=== PATIENT | male | born 1950 | race African-American/Black ===

== ENCOUNTER 2018-01-23 14:50 | Inpatient (IN) | payer OTHER ==
[2018-01-23] MEDS ORDERED: ASPIRIN 81 MG CHEWABLE TABLETS PO ONE (15:06)
--- NOTE | 2018-01-23 15:06 | PDOC ---
History of Present Illness - History of Present Illness Initial Comments: The patient is a 67 year old male, with a significant PMH of HTN and CHF (NC with meds for 2 years), who presents to the emergency department today for dyspnea on exertion, as per request of Dr. Arauz. Patient saw earlier today for SOB and hematuria for 1 week, and was advised to go to the ED to be admitted. Patient notes he typically walks 3.5 blocks daily, but can no longer walk for more than 1 block or uphill without feeling SOB. He also reports associated orthopnea and LE edema. Patient notes there has been blood in his urine, but denies dysuria. The patient denies chest pain, headache and dizziness. Denies fever, chills, nausea, vomit, diarrhea and constipation. Denies dysuria, frequency, and urgency. Allergies: NKA Past surgical history: None reported Social history: No reported PCP: Dr. Arauz 01/23/18 16:02 <Luz Lin - Last Filed: 01/23/18 16:52> - General History Source: Patient Exam Limitations: No Limitations <Brittanie Negrete - Last Filed: 01/23/18 17:56> - General Chief Complaint: Shortness of Breath Stated Complaint: Shortness of Breath Time Seen by Provider: 01/23/18 14:58 Past History <Luz Lin - Last Filed: 01/23/18 16:52> - Past Medical History Diabetes: Yes HTN: Yes - Immunization History Immunization Up to Date: Yes - Suicide/Smoking/Psychosocial Hx Smoking History: Never smoked Have you smoked in the past 12 months: No Hx Alcohol Use: No Drug/Substance Use Hx: No Substance Use Type: None <Brittanie Negrete - Last Filed: 01/23/18 17:56> - Past Medical History Allergies/Adverse Reactions: Allergies Allergy/AdvReac Type Severity Reaction Status Date / Time No Known Allergies Allergy Verified 01/23/18 15:28 Home Medications: Ambulatory Orders NK [No Known Home Medication] 01/23/18 Review of Systems - Review of Systems Comments:: GENERAL/CONSTITUTIONAL: No fever or chills. No weakness. HEAD, EYES, EARS, NOSE AND THROAT: No change in vision. No ear pain or discharge. No sore throat. CARDIOVASCULAR: +SOB. No chest pain. RESPIRATORY: No cough, wheezing, or hemoptysis. GASTROINTESTINAL: No nausea, vomiting, diarrhea or constipation. GENITOURINARY: +Hematuria. No dysuria, frequency, or urgency.. MUSCULOSKELETAL: No joint or muscle swelling or pain. No neck or back pain. SKIN: No rash NEUROLOGIC: No headache, vertigo, loss of consciousness, or change in strength/ sensation. ENDOCRINE: No increased thirst. No abnormal weight change. HEMATOLOGIC/LYMPHATIC: No anemia, easy bleeding, or history of blood clots. ALLERGIC/IMMUNOLOGIC: No hives or skin allergy. 01/23/18 16:03 <Luz Lin - Last Filed: 01/23/18 16:52> *Physical Exam - Vital Signs Last Vital Signs Temp Pulse Resp BP Pulse Ox 97.3 F L 116 H 22 H 208/118 H 98 01/23/18 14:54 01/23/18 15:24 01/23/18 15:24 01/23/18 15:24 01/23/18 15:24 - Physical Exam Comments: GENERAL: The patient is in no acute distress. HEAD: Normal with no signs of trauma. EYES: PERRLA, EOMI, sclera anicteric, conjunctiva clear. ENT: Ears normal, nares patent, oropharynx clear without exudates. Moist mucous membranes. NECK: Normal range of motion, supple without lymphadenopathy, JVD, or masses. LUNGS: +Decreased breath sounds bilaterally at bases. +Crackles bilaterally. No wheezes. HEART:+Systolic murmur. +Tachycardic. Regular rhythm. No rub or gallop. ABDOMEN: Soft, nontender, normoactive bowel sounds. No guarding, no rebound. No masses palpable. EXTREMITIES: +3+ pitting edema bilaterally. Normal range of motion. No clubbing or cyanosis. No erythema, or tenderness. NEUROLOGICAL: Cranial nerves II through XII grossly intact. Normal speech. No focal neurological deficits. MUSCULOSKELETAL: Back non-tender to palpation, no CVA tenderness SKIN: Warm, Dry, normal turgor, no rashes or lesions noted. 01/23/18 16:03 <Luz Lin - Last Filed: 01/23/18 16:52> Moderate Sedation - Procedure Monitoring Vital Signs: Procedure Monitoring Vital Signs Temperature 97.3 F L 01/23/18 14:54 Pulse Rate 116 H 01/23/18 15:24 Respiratory Rate 22 H 01/23/18 15:24 Blood Pressure 208/118 H 01/23/18 15:24 O2 Sat by Pulse Oximetry (%) 98 01/23/18 15:24 <Luz Lin - Last Filed: 01/23/18 16:52> Heart Score/ECG Review - ECG Intrepretation Comment:: Sinus tachycardia. Left atrial enlargement. Left ventricular hypertrophy. Inferior infarct, age undetermined. Abnormal ECG. 01/23/18 16:21 <Luz Lin - Last Filed: 01/23/18 16:52> ED Treatment Course - LABORATORY CBC & Chemistry Diagram: 01/23/18 15:17 01/23/18 15:17 - ADDITIONAL ORDERS Additional order review: 01/23/18 15:17 RBC 4.57 MCV 91.9 MCHC 35.1 RDW 13.2 MPV 10.1 Neutrophils % 84.3 H Lymphocytes % 7.6 L Monocytes % 6.6 Eosinophils % 1.1 D Basophils % 0.4 - Medications Given in the ED: ED Medications Discontinued Medications Generic Name Dose Route Start Last Admin Trade Name Freq PRN Reason Stop Dose Admin Aspirin 162 mg 01/23/18 15:06 01/23/18 15:24 Asa - PO 01/23/18 15:07 162 mg ONCE ONE Administration Furosemide 40 mg 01/23/18 15:07 01/23/18 15:24 Lasix Injection - IVPUSH 01/23/18 15:08 40 mg ONCE ONE Administration Labetalol HCl 10 mg 01/23/18 15:07 01/23/18 15:32 Normodyne Injection - IVPUSH 01/23/18 15:08 10 mg ONCE ONE Administration - Additional Consults Time Called: 16:46 (Called answering service, awaiting call back) Consult/PCP: Dr. Cabrera <Luz Lin - Last Filed: 01/23/18 16:52> - LABORATORY CBC & Chemistry Diagram: 01/23/18 15:17 01/23/18 15:17 <Brittanie Negrete - Last Filed: 01/23/18 17:56> Medical Decision Making - Medical Decision Making Mr. Gaines is a 67 yo M h/o HTN who presents to the ER with a complaint of shortness of breath pt has been NON COMPLIANT with his medications for the past 2 years He was lost to follow up Pt reported 2 weeks of dyspnea on exertion No chest pain No cough No fevers or chills Seen by Dr Arauz who recommended transfer to the ER Pt was previously on Lasix and Metoprolol Lasix ordered Labetolol ordered Goal BP 180s 01/23/18 15:43 Laboratory Tests 05/16/15 01/23/18 07:00 15:17 WBC 9.6 D 6.7 Hgb 13.0 14.7 Hct 39.5 42.0 Plt Count 163 175 EKG - Sinus tachycardia Rate of 113 bpm, axis nml, prominent st segment ve and t wave, (+) LVH 01/23/18 15:48 BP repeated SBP 150s 01/23/18 16:43 Laboratory Tests 05/28/15 01/23/18 12:50 15:17 Sodium 139 137 Potassium 4.8 4.1 Chloride 104 105 BUN 28 H 15 Creatinine 1.4 H 1.3 Random Glucose 86 D 103 Creatine Kinase 128 Troponin I 0.02 B-Natriuretic Peptide 512.7 H 01/23/18 17:55 Case reviewed with Hospitalist Admitted to hospitalist service <Brittanie Ngerete - Last Filed: 01/23/18 17:56> *DC/Admit/Observation/Transfer - Attestations Scribe Attestion: 01/23/18 16:03 Documentation prepared by AROLDO Paul, acting as medical billing and coding instructor for Brittanie Negrete MD. <Luz Lin - Last Filed: 01/23/18 16:52> - Discharge Dispostion Decision to Admit order: Yes <Brittanie Negrete - Last Filed: 01/23/18 17:56> Diagnosis at time of Disposition: Hypertensive urgency Congestive heart failure (CHF) Qualifiers: Heart failure type: unspecified Heart failure chronicity: unspecified Qualified Code(s): I50.9 - Heart failure, unspecified - Discharge Dispostion Condition at time of disposition: Fair - Referrals Referrals: Reyes Arauz MD [Primary Care Provider] - - Patient Instructions - Post Discharge Activity
[2018-01-23] MEDS ORDERED: FUROSEMIDE 40 MG/4 ML INJECTABLE VIAL IVPUSH ONE (15:07)
[2018-01-23] MEDS ORDERED: LABETALOL HCL 5 MG/1 ML (100MG/20 ML VIAL) IVPUSH ONE (15:07)
[2018-01-23 15:15] VITALS: BMI 31.8
[2018-01-23] MEDS ORDERED: ASPIRIN 81 MG CHEWABLE TABLETS ONE (15:18)
[2018-01-23] MEDS ORDERED: FUROSEMIDE 40 MG/4 ML INJECTABLE VIAL ONE (15:18)
[2018-01-23] MEDS ORDERED: LABETALOL HCL 5 MG/1 ML (100MG/20 ML VIAL) ONE (15:18)
[2018-01-23 15:34] LABS: BASO % 0.4 % (0-2.0); EOS % 1.1 % (0-4.5); HEMOGLOBIN 14.7 GM/dL (11.7-16.9); LYMPH % 7.6 % (8-40); MCH 32.2 pg (25.7-33.7); MCHC 35.1 g/dl (32.0-35.9); MEAN CELL VOLUME 91.9 fl (80-96); MEAN PLT VOLUME 10.1 fl (7.5-11.1); MONO % 6.6 % (3.8-10.2); NEUT % 84.3 % (42.8-82.8); PLATELET COUNT 175 K/MM3 (134-434); RBC 4.57 M/mm3 (4.00-5.60); RDW 13.2 % (11.9-15.9); WHITE BLOOD COUNT 6.7 K/mm3 (4.0-10.0)
[2018-01-23 16:13] LABS: INR 1.09 (0.83-1.09); PROTHROMBIN TIME (PATIENT) 12.9 SEC (9.7-13.0)
[2018-01-23 16:41] LABS: ALBUMIN 3.6 g/dl (3.4-5.0); ALK PHOS 72 U/L (45-117); ANION GAP 6 MMOL/L (8-16); BILIRUBIN,TOTAL 0.6 mg/dL (0.2-1); BLOOD UREA NITROGEN 15 mg/dL (7-18); CALCIUM 8.3 mg/dL (8.5-10.1); CHLORIDE 105 mmol/L (98-107); CO2 26 mmol/L (21-32); CREATININE 1.3 mg/dL (0.55-1.3); GLUCOSE,RANDOM 103 mg/dL (74-106); MAGNESIUM 1.7 mg/dL (1.8-2.4); N-TERMINAL BNP 512.7 pg/ml (5-125); POTASSIUM 4.1 mmol/L (3.5-5.1); SGOT/AST 23 U/L (15-37); SGPT/ALT 24 U/L (13-61); SODIUM 137 mmol/L (136-145); TOT PROT 6.5 g/dl (6.4-8.2)
--- NOTE | 2018-01-23 19:04 | CON.CARD ---
Cardiology Consult (text) - Consultation Consultation Note: Patient seen and examined in office today and sent to ER for CHF and chronic uncontrolled HTN. 67M with mitral regurgitation and chronic HTN has not been to a doctor or taken any medications since 2016 presented with 2 weeks LE edema and VELASCO found to be hypertensive in office to 200/100. Sent to ER for stat labs, BP management, diuresis and further evaluation of MR. He has mild non-obstx CAD on cath '16 [facility]. Last Meds recorded in 2016: Toprol XL 50 Lisinopril 10 Aspirin 81 Crestor 5 Was given Lasix 40mg IV x 1 and Labetalol 10mg IV x 1 in ER. REC: 1. IV Lasix 2. BP control- resume home meds in AM. Would lower the beta rodrick dose to 25mg while in volume overload 3. Telemetry while we carefully monitor BP and volume status w/ daily weights 4. Close eye on renal fxn and electrolytes 5. Repeat echo for MR assessment: can look severe when BP is uncontrolled and volume status not optimized. Will follow in AM Thank you.
--- NOTE | 2018-01-23 19:35 | HP ---
CHIEF COMPLAINT: HTN PCP: Dr. Arauz HISTORY OF PRESENT ILLNESS: 67 year old male with a PMH significant for systolic HF and HTN presented to the ED at the request of his PCP Dr. Arauz for elevated BP and SOB. Over the past several days he has noticed he gets SOB after walking just one block when he usually has no problem walking several blocks. He has also noticed blood in his urine for the past week. He presented to his PCP Dr. Arauz whom he had not seen in 2 years, nor had he been taking his his blood pressure medications in approximately [address] Arauz requested patient go to the emergency room to be admitted. Denies fevers, [place], lightheadedness, chest pain, n/v/d. Upon admission to the ED BP was 234/162, HR 116, R 22, O2 92% on RA. Labs notable for BNP of 512.7, trop negative. CXR shows possible LLL infiltrate. He was given Lasix 40 IV, Labetalol 10 mg and ASA 162 mg. BP improved to 170/97. Recent Travel: No PAST MEDICAL HISTORY: HTN Systolic CHF PAST SURGICAL HISTORY: A procedure on his stomach, but he is not sure what it was for Social History: Smoking: Never smoker Alcohol: Drinks about 3 beers a night Drugs: Denies Family History: Sister: cardiac disease Allergies No Known Allergies Allergy (Verified 01/23/18 15:28) HOME MEDICATIONS: Home Medications Medication Instructions Recorded NK [No Known Home Medication] 01/23/18 REVIEW OF SYSTEMS CONSTITUTIONAL: Absent: fever, chills, diaphoresis, generalized weakness, malaise, loss of appetite, weight change HEENT: Absent: rhinorrhea, nasal congestion, throat pain, throat swelling, difficulty swallowing, mouth swelling, ear pain, eye pain, visual changes CARDIOVASCULAR: (+) peripheral edema Absent: chest pain, syncope, palpitations, irregular heart rate, lightheadedness , RESPIRATORY: (+) dyspnea with exertion Absent: cough, shortness of breath, orthopnea, wheezing, stridor, hemoptysis GASTROINTESTINAL: Absent: abdominal pain, abdominal distension, nausea, vomiting, diarrhea, constipation, melena, hematochezia GENITOURINARY: (+) hematuria Absent: dysuria, frequency, urgency, hesitancy, flank pain, genital pain MUSCULOSKELETAL: Absent: myalgia, arthralgia, joint swelling, back pain, neck pain SKIN: Absent: rash, itching, pallor HEMATOLOGIC/IMMUNOLOGIC: Absent: easy bleeding, easy bruising, lymphadenopathy, frequent infections ENDOCRINE: Absent: unexplained weight gain, unexplained weight loss, heat intolerance, cold intolerance NEUROLOGIC: Absent: headache, focal weakness or paresthesias, dizziness, unsteady gait, seizure, mental status changes, bladder or bowel incontinence PSYCHIATRIC: Absent: anxiety, depression, suicidal or homicidal ideation, hallucinations. PHYSICAL EXAMINATION Vital Signs - 24 hr 01/23/18 01/23/18 01/23/18 14:54 15:07 15:16 Temperature 97.3 F L Pulse Rate 52 L 116 H Pulse Rate [ 116 H Apical] Respiratory 22 H Rate Blood Pressure 234/162 H Blood Pressure [Right Arm] O2 Sat by Pulse 92 L 97 Oximetry (%) 01/23/18 01/23/18 01/23/18 15:24 16:26 17:39 Temperature Pulse Rate Pulse Rate [ 116 H 86 80 Apical] Respiratory 22 H 22 H 20 Rate Blood Pressure Blood Pressure 208/118 H 166/97 170/97 [Right Arm] O2 Sat by Pulse 98 95 95 Oximetry (%) GENERAL: Awake, alert, and fully oriented, in no acute distress. HEAD: Frontal balding, normal with no signs of trauma. EYES: Pupils equal, round and reactive to light, extraocular movements intact, sclera anicteric, conjunctiva clear. No lid lag. EARS, NOSE, THROAT: Edentulous, nares patent, oropharynx clear without exudates. Moist mucous membranes. NECK: Normal range of motion, supple without lymphadenopathy, JVD, or masses. LUNGS: Breath sounds equal, clear to auscultation bilaterally. No wheezes, and no crackles. No accessory muscle use. HEART: +Systolic murmur, regular rate and rhythm, normal S1 and S2 ABDOMEN: Obese, protuberant, soft, nontender, not distended, normoactive bowel sounds, no guarding, no rebound, no masses. No hepatomegaly or splenomegaly. MUSCULOSKELETAL: Normal range of motion at all joints. No bony deformities or tenderness. No CVA tenderness. UPPER EXTREMITIES: 2+ pulses, warm, well-perfused. No cyanosis. No clubbing. No peripheral edema. LOWER EXTREMITIES: BLE edematous with hyperpigmented, fibrotic skin NEUROLOGICAL: May have cognitive deficit; poor historian, no facial droop, tongue midline PSYCHIATRIC: Cooperative. Good eye contact. Appropriate mood and affect. SKIN: Warm, dry, normal turgor, no rashes or lesions noted, normal capillary refill. Laboratory Results - last 24 hr 01/23/18 01/23/18 01/23/18 15:10 15:17 15:17 WBC 6.7 RBC 4.57 Hgb 14.7 Hct 42.0 MCV 91.9 MCH 32.2 MCHC 35.1 RDW 13.2 Plt Count 175 MPV 10.1 Absolute Neuts (auto) 5.7 Neutrophils % 84.3 H Lymphocytes % 7.6 L Monocytes % 6.6 Eosinophils % 1.1 D Basophils % 0.4 Nucleated RBC % 0 PT with INR 12.90 INR 1.09 Sodium Potassium Chloride Carbon Dioxide Anion Gap BUN Creatinine Creat Clearance w eGFR Random Glucose Calcium Magnesium Total Bilirubin AST ALT Alkaline Phosphatase Creatine Kinase Troponin I B-Natriuretic Peptide Total Protein Albumin Blood Type O POSITIVE Antibody Screen Negative 01/23/18 15:17 WBC RBC Hgb Hct MCV MCH MCHC RDW Plt Count MPV Absolute Neuts (auto) Neutrophils % Lymphocytes % Monocytes % Eosinophils % Basophils % Nucleated RBC % PT with INR INR Sodium 137 Potassium 4.1 Chloride 105 Carbon Dioxide 26 Anion Gap 6 L BUN 15 Creatinine 1.3 Creat Clearance w eGFR 54.90 Random Glucose 103 Calcium 8.3 L Magnesium 1.7 L Total Bilirubin 0.6 AST 23 ALT 24 Alkaline Phosphatase 72 Creatine Kinase 128 Troponin I 0.02 B-Natriuretic Peptide 512.7 H Total Protein 6.5 Albumin 3.6 Blood Type Antibody Screen ASSESSMENT/PLAN: 67 year old male with a PMH significant for systolic HF and HTN presented to the ED at the request of his PCP Dr. Arauz for elevated BP and SOB. Upon admission to the ED BP was 234/162. He was admitted for further cardiac work up. HTN Urgency - Improved; 234/162 -> 170/97 Systolic CHF - Echo 02/2014: mod lve, mod-sev decreased lvef with global hk, nl rv, mod- sev mr, mod tr, rvsp 40-50 - BNP 512.7 - Has been off medication for 2 years, used to take lasix and metoprolol - Telemetry monitoring - Daily weights - Monitor bp - Trend troponins - Followed by Dr. Arauz who will see him in the AM - Will restart home medications from 2016 in the AM - Metoprolol Succinate 25 mg PO BID (Can increase back to 50 mg BID while hypervolemic) - Lisinopril 5 mg PO qday - Aspirin 81 PO qday - Crestor 5 PO qday Prophylaxis - DVT: Heparin SQ FEN - PO intake adequate - Replete as needed - Na restricted diet Disp: Patient requires further inpatient care. Visit type - Emergency Visit Emergency Visit: Yes ED Registration Date: 01/23/18 Care time: The patient presented to the Emergency Department on the above date and was hospitalized for further evaluation of their emergent condition. - New Patient This patient is new to me today: Yes Date on this admission: 01/24/18 - Critical Care Critical Care patient: No
[2018-01-23] MEDS ORDERED: HEPARIN NA (PORCINE) 5,000 UNITS/ML 1ML VIAL ONE (22:02)
[2018-01-23] MEDS: HEPARIN NA (PORCINE) 5,000 UNITS/ML 1ML VIAL SQ SCH (22:05)
[2018-01-24] MEDS ORDERED: HEPARIN NA (PORCINE) 5,000 UNITS/ML 1ML VIAL ONE (07:08)
[2018-01-24] MEDS: HEPARIN NA (PORCINE) 5,000 UNITS/ML 1ML VIAL SQ SCH ×3 (07:15→21:18)
[2018-01-24 08:49] LABS: HEMATOCRIT 39.6 % (35.4-49); HEMOGLOBIN 13.8 GM/dL (11.7-16.9); MCH 31.9 pg (25.7-33.7); MEAN CELL VOLUME 91.3 fl (80-96); MEAN PLT VOLUME 9.8 fl (7.5-11.1); PLATELET COUNT 179 K/MM3 (134-434); RBC 4.34 M/mm3 (4.00-5.60); RDW 13.2 % (11.9-15.9); WHITE BLOOD COUNT 5.3 K/mm3 (4.0-10.0)
--- NOTE | 2018-01-24 08:52 | PN ---
Progress Note, Physician Chief Complaint: awake and alert Denies CP or SOB BP better this AM - Current Medication List Current Medications: Active Medications Furosemide (Lasix Injection -) 40 mg IVPUSH DAILY [facility] Heparin Sodium (Porcine) (Heparin -) 5,000 unit SQ TID [facility] Last Admin: 01/24/18 07:15 Dose: 5,000 unit Lisinopril (Prinivil) 5 mg PO DAILY [facility] Metoprolol Succinate (Toprol Xl -) 25 mg PO DAILY [facility] - Objective Vital Signs: Vital Signs Temperature 98.9 F 01/24/18 06:36 Pulse Rate 62 01/24/18 06:36 Respiratory Rate 18 01/23/18 20:57 Blood Pressure 163/84 01/24/18 06:36 O2 Sat by Pulse Oximetry (%) 97 01/24/18 06:36 Constitutional: Yes: No Distress, Calm Cardiovascular: Yes: Regular Rate and Rhythm Respiratory: Yes: Other (rales at left base, decreased breath sounds on right) Gastrointestinal: Yes: Soft Edema: Yes Edema: LLE: 1+, RLE: 1+ Neurological: Yes: Alert Labs: INR, PTT INR 1.09 (0.83-1.09) 01/23/18 15:17 Laboratory Tests 01/23/18 01/23/18 01/24/18 15:17 19:18 08:30 Potassium Pending Creatinine Pending Troponin I 0.02 0.04 Pending B-Natriuretic Peptide 512.7 H - ....Imaging Chest X-ray: Image Reviewed EKG: Image Reviewed Assessment/Plan IMP: Chronic HTN, non-adherence with medications Hypertensive heart disease Acute on chronic diastolic CHF, precipitated by uncontrolled HTN Mitral regurgitation: moderate REC: 1. IV Lasix 2. Echo to assess MR 3. Resume PO meds today: Toprol 25 and Lisinopril. 4. Daily BMP to follow renal fxn 5. ASA and statin for hx of non-obstructive CAD Will follow.
[2018-01-24 09:16] LABS: ANION GAP 6 MMOL/L (8-16); BLOOD UREA NITROGEN 13 mg/dL (7-18); CALCIUM 7.9 mg/dL (8.5-10.1); CHLORIDE 107 mmol/L (98-107); CO2 26 mmol/L (21-32); CREATININE 1.4 mg/dL (0.55-1.3); GLUCOSE,RANDOM 95 mg/dL (74-106); MAGNESIUM 1.8 mg/dL (1.8-2.4); POTASSIUM 4.3 mmol/L (3.5-5.1); SODIUM 138 mmol/L (136-145)
[2018-01-24] MEDS ORDERED: metoPROLOL SUCCINATE 25 MG TAB.SR.24H (FP) PO SCH (10:00)
[2018-01-24] MEDS ORDERED: MAGNESIUM 1GM/D5W 100ML - 100 ML IVPB IVPB ONE (10:30)
--- NOTE | 2018-01-24 12:05 | EKG ---
Test Reason : Blood Pressure : / mmHG Vent. Rate : 113 BPM Atrial Rate : 113 BPM P-R Int : 150 ms QRS Dur : 086 ms QT Int : 332 ms P-R-T Axes : 044 -19 068 degrees QTc Int : 455 ms SINUS TACHYCARDIA LEFT ATRIAL ENLARGEMENT LEFT VENTRICULAR HYPERTROPHY INFERIOR INFARCT , AGE UNDETERMINED ABNORMAL ECG WHEN COMPARED WITH ECG OF 14-MAY-2015 21:17, FUSION COMPLEXES ARE NO LONGER PRESENT PREMATURE VENTRICULAR COMPLEXES ARE NO LONGER PRESENT PREMATURE SUPRAVENTRICULAR COMPLEXES ARE NO LONGER PRESENT INFERIOR INFARCT IS NOW PRESENT Confirmed by MANAV DORANTES MD ([id number]) on 01/24/2018 12:05:02 PM Referred By: Confirmed By:MANAV DORANTES MD
[2018-01-24] MEDS: FUROSEMIDE 40 MG/4 ML INJECTABLE VIAL IVPUSH SCH (12:51)
--- NOTE | 2018-01-24 12:51 | ECHO ---
Name: GREGORIO SHANE Exam:Adult Echocardiogram Study Date: 01/24/2018 08:01 AM Age: 67 yrs Reason For Study: chf Height: 69 in Weight: 216 lb BSA: 2.1 m2 MMode/2D Measurements & Calculations IVSd: 1.2 cm Ao root diam: 2.5 cm LVIDd: 5.0 cm LA dimension: 4.5 cm LVIDs: 4.2 cm LVPWd: 1.1 cm EDV(Teich): 116.0 ml LAV (MOD-bp): 71.0 ml ESV(Teich): 80.4 ml Doppler Measurements & Calculations MV E max alexi: 105.0 cm/sec MR max alexi: 565.6 cm/sec MV A max alexi: 101.0 cm/sec MR max P.2 mmHg MV E/A: 1.0 MV dec time: 0.11 sec TR max alexi: 323.8 cm/sec Med Peak E' Alexi: 6.3 cm/sec TR max P.1 mmHg Med E/e': 16.6 Lat Peak E' Alexi: 8.5 cm/sec Lat E/e': 12.4 PI Vmax: 176.5 cm/sec Procedure A complete two-dimensional transthoracic echocardiogram was performed (2D, M-mode, Doppler and color flow Doppler). Left Ventricle The left ventricle is normal in size. Ejection Fraction = 35-40%. Left ventricular systolic function is moderately reduced. There is moderate global hypokinesis of the left ventricle. Right Ventricle The right ventricle is normal in size and function. Atria The left atrium is mildly dilated. Right atrial size is normal. Mitral Valve There is mild to moderate mitral regurgitation. Tricuspid Valve There is mild tricuspid regurgitation. There is mild pulmonary hypertension. Aortic Valve No hemodynamically significant valvular aortic stenosis. No aortic regurgitation is present. Pulmonic Valve There is no pulmonic valvular regurgitation. Great Vessels The aortic root is normal size. Pericardium/Pleura There is no pericardial effusion. Interpretation Summary The left ventricle is normal in size. Left ventricular systolic function is moderately reduced. There is moderate global hypokinesis of the left ventricle. The right ventricle is normal in size and function. The left atrium is mildly dilated. There is mild to moderate mitral regurgitation. There is mild tricuspid regurgitation. There is mild pulmonary hypertension. MD Ciro Yost 01/24/2018 12:51 PM
[2018-01-24] MEDS: LISINOPRIL 5 MG TABLET (FP) PO SCH (12:52)
[2018-01-24] MEDS ORDERED: MAGNESIUM 1GM/D5W - 1 GM/100 ML IVPB IVPB ONE (12:54)
--- NOTE | 2018-01-24 15:30 | PN ---
Progress Note (short form) - Note Progress Note: Feels less SOB. Denies CP/orthopnea/PND. No fever/chills/cough/sputum Afebrile, Hemodynamically Stable. Last Vital Signs Temp Pulse Resp BP Pulse Ox 98.9 F 62 25 H 163/84 97 01/24/18 06:36 01/24/18 06:36 01/23/18 23:45 01/24/18 06:36 01/24/18 06:36 HEENT - Atraumatic, Normocephalic. No pharyngeal erythema/exudate Heart - S1, S2, RRR Lungs - few basal crackles L>R Abdomen - Soft, non-tender. Bowel Sounds normal. Extrmeties - bilateral LE edema with chronic venous stasis skin changes R>L Neuro - AAO x 2. Moving all 4 extremities. Laboratory Results - last 24 hr 01/23/18 01/23/18 01/23/18 08:30 15:10 15:17 WBC 6.7 RBC 4.57 Hgb 14.7 Hct 42.0 MCV 91.9 MCH 32.2 MCHC 35.1 RDW 13.2 Plt Count 175 MPV 10.1 Absolute Neuts (auto) 5.7 Neutrophils % 84.3 H Lymphocytes % 7.6 L Monocytes % 6.6 Eosinophils % 1.1 D Basophils % 0.4 Nucleated RBC % 0 PT with INR INR Sodium Potassium Chloride Carbon Dioxide Anion Gap BUN Creatinine Creat Clearance w eGFR Random Glucose Calcium Magnesium Total Bilirubin AST ALT Alkaline Phosphatase Creatine Kinase Troponin I B-Natriuretic Peptide Total Protein Albumin Blood Type O POSITIVE O POSITIVE Antibody Screen Negative 01/23/18 01/23/18 01/23/18 15:17 15:17 19:18 WBC RBC Hgb Hct MCV MCH MCHC RDW Plt Count MPV Absolute Neuts (auto) Neutrophils % Lymphocytes % Monocytes % Eosinophils % Basophils % Nucleated RBC % PT with INR 12.90 INR 1.09 Sodium 137 Potassium 4.1 Chloride 105 Carbon Dioxide 26 Anion Gap 6 L BUN 15 Creatinine 1.3 Creat Clearance w eGFR 54.90 Random Glucose 103 Calcium 8.3 L Magnesium 1.7 L Total Bilirubin 0.6 AST 23 ALT 24 Alkaline Phosphatase 72 Creatine Kinase 128 116 Troponin I 0.02 0.04 B-Natriuretic Peptide 512.7 H Total Protein 6.5 Albumin 3.6 Blood Type Antibody Screen 01/24/18 01/24/18 08:30 08:30 WBC 5.3 RBC 4.34 Hgb 13.8 Hct 39.6 MCV 91.3 MCH 31.9 MCHC 35.0 RDW 13.2 Plt Count 179 MPV 9.8 Absolute Neuts (auto) Neutrophils % Lymphocytes % Monocytes % Eosinophils % Basophils % Nucleated RBC % PT with INR INR Sodium 138 Potassium 4.3 Chloride 107 Carbon Dioxide 26 Anion Gap 6 L BUN 13 Creatinine 1.4 H Creat Clearance w eGFR 50.40 Random Glucose 95 Calcium 7.9 L Magnesium 1.8 Total Bilirubin AST ALT Alkaline Phosphatase Creatine Kinase 94 Troponin I 0.05 B-Natriuretic Peptide Total Protein Albumin Blood Type Antibody Screen Current Medications Generic Name Dose Route Start Last Admin Trade Name Freq PRN Reason Stop Dose Admin Atorvastatin Calcium 20 mg 01/24/18 22:00 Lipitor - PO HS [facility] Furosemide 40 mg 01/24/18 10:00 01/24/18 12:51 Lasix Injection - IVPUSH 40 mg DAILY [facility] Administration Heparin Sodium (Porcine) 5,000 unit 01/23/18 22:00 01/24/18 13:20 Heparin - SQ 5,000 unit TID [facility] Administration Lisinopril 5 mg 01/24/18 10:00 01/24/18 12:52 Prinivil PO 5 mg DAILY [facility] Administration Metoprolol Succinate 25 mg 01/24/18 10:00 01/24/18 12:52 Toprol Xl - PO 25 mg DAILY [facility] Administration ASSESSMENT/PLAN 67 year old male with a history of Chronic systolic CHF, HTN, Severe Mitral Regurgitation, Severe Tricuspid regurgictation, non-compliant with medication for at least 2 years presents to ED with increasing shortness of breath on exertion for 1-2 weeks and a few recent episodes of Hematuria. No chest pain/palpitations/orthopnea/PND. No abdominal pain/dysuria. CXR - Cardiomegaly with L basal atelectasis +/- fluid 1. Hypertensive Urgency - now resolved after IV Labetolol in ED - resumed on home medications Metoprolol and Lisinopril. 2. Acute on Chronic systolic CHF exacerbation with severe MR/TR CXR - as above BNP 512 Last Echo 2016 - mildly reduced EF, multiple wall hypokinesis, severe MR/TR - will repeat. Continue IV Lasix with daily weight/I and Os/ renal function monitoring. Chest pain free. Serial TropI 0.02 > 0.04 > 0.05. No chest discomfort. ECG - LVH, tachy, no acute changes. Cardiology following. Continue ASA, BB, YANY-I, Statin 3. HLD - Resumed on Lipitor. 4. Hematuria H/H stable. Urinalysis requested. Renal US requested. Urology consult if ongoing Hematuria or Renal US abnormal. Urine Cx requested. 5. Hypomagnesemia - repleted. DVT Px- Heparin SQ - will hold if any ongoing hematuria. Visit type - Emergency Visit Emergency Visit: Yes ED Registration Date: 01/23/18 Care time: The patient presented to the Emergency Department on the above date and was hospitalized for further evaluation of their emergent condition. - New Patient This patient is new to me today: Yes Date on this admission: 01/24/18 - Critical Care Critical Care patient: No - Discharge Referral Referred to [facility] Med P.C.: No
[2018-01-24] MEDS: ATORVASTATIN CA 20 MG TABLET (FP) PO SCH (21:18)
[2018-01-25] MEDS: HEPARIN NA (PORCINE) 5,000 UNITS/ML 1ML VIAL SQ SCH ×3 (05:58→22:12)
[2018-01-25 07:49] LABS: ANION GAP 5 MMOL/L (8-16); BLOOD UREA NITROGEN 19 mg/dL (7-18); CALCIUM 8.1 mg/dL (8.5-10.1); CHLORIDE 108 mmol/L (98-107); CO2 27 mmol/L (21-32); CREATININE 1.5 mg/dL (0.55-1.3); GLUCOSE,RANDOM 92 mg/dL (74-106); MAGNESIUM 2.1 mg/dL (1.8-2.4); POTASSIUM 4.2 mmol/L (3.5-5.1); SODIUM 140 mmol/L (136-145)
--- NOTE | 2018-01-25 09:12 | PN ---
Progress Note, Physician Chief Complaint: feels well, no distress TELE NSR, Rare PVCs - Current Medication List Current Medications: Active Medications Atorvastatin Calcium (Lipitor -) 20 mg PO HS COUNTS INCLUDE 234 BEDS AT THE [facility] Last Admin: 01/24/18 21:18 Dose: 20 mg Furosemide (Lasix Injection -) 40 mg IVPUSH DAILY COUNTS INCLUDE 234 BEDS AT THE [facility] Last Admin: 01/24/18 12:51 Dose: 40 mg Heparin Sodium (Porcine) (Heparin -) 5,000 unit SQ TID COUNTS INCLUDE 234 BEDS AT THE [facility] Last Admin: 01/25/18 05:58 Dose: 5,000 unit Lisinopril (Prinivil) 5 mg PO DAILY COUNTS INCLUDE 234 BEDS AT THE [facility] Last Admin: 01/24/18 12:52 Dose: 5 mg Metoprolol Succinate (Toprol Xl -) 25 mg PO DAILY COUNTS INCLUDE 234 BEDS AT THE [facility] Last Admin: 01/24/18 12:52 Dose: 25 mg - Objective Vital Signs: Vital Signs Temperature 98.6 F 01/25/18 02:00 Pulse Rate 80 01/25/18 02:00 Respiratory Rate 20 01/25/18 02:00 Blood Pressure 152/85 01/25/18 02:00 O2 Sat by Pulse Oximetry (%) 98 01/24/18 21:00 Constitutional: Yes: No Distress Eyes: Yes: Conjunctiva Clear Cardiovascular: Yes: Regular Rate and Rhythm Respiratory: Yes: Other (still with some rales at bases, L > R) Gastrointestinal: Yes: Soft Edema: Yes Edema: LLE: 1+, RLE: 1+ Neurological: Yes: Alert, Oriented ...Motor Strength: WNL Labs: CBC, BMP 01/24/18 08:30 01/25/18 06:28 INR, PTT INR 1.09 (0.83-1.09) 01/23/18 15:17 Laboratory Tests 01/23/18 01/23/18 01/24/18 15:17 19:18 08:30 WBC 5.3 Hgb 13.8 Plt Count 179 Sodium Potassium BUN Creatinine Magnesium Creatine Kinase 128 116 Troponin I 0.02 0.04 01/24/18 01/25/18 08:30 06:28 WBC Hgb Plt Count Sodium 140 Potassium 4.2 BUN 19 H Creatinine 1.5 H Magnesium 2.1 Creatine Kinase 94 Troponin I 0.05 - ....Imaging EKG: Image Reviewed Assessment/Plan IMP: Chronic HTN, non-adherence with medications Hypertensive heart disease Acute on chronic combined sysolic and diastolic CHF, precipitated by uncontrolled HTN Mitral regurgitation: mild to moderate Non-ischemic CM REC: 1. IV Lasix-- will need additional 1-2 days of IV and can switch to PO Sunday or Sunday. 2. Echo to assess MR reveals mild to moderate regurg-- no further intervention required 3. Increase Toprol tpo 50mg daily. Cont YANY for HTN and NICM. 4. Daily BMP to follow renal fxn 5. ASA and statin for hx of non-obstructive CAD Can d/c tele in next 24-48 hours if volume status continues to improve.
[2018-01-25] MEDS: LISINOPRIL 5 MG TABLET (FP) PO SCH (10:33)
[2018-01-25] MEDS: FUROSEMIDE 40 MG/4 ML INJECTABLE VIAL IVPUSH SCH (10:33)
[2018-01-25 14:24] LABS: URINE APPEARANCE CLEAR; URINE BILIRUBIN NEGATIVE (<2.0 mg/dL); URINE COLOR COLORLESS; URINE GLUCOSE (UA) NEGATIVE (NEGATIVE); URINE KETONE NEGATIVE (NEGATIVE); URINE LEUK ESTERASE NEGATIVE (NEGATIVE); URINE NITRITE NEGATIVE (NEGATIVE); URINE PROTEIN NEGATIVE (NEGATIVE); URINE UROBILINOGEN NEGATIVE mg/dL (0.2-1.0)
--- NOTE | 2018-01-25 18:33 | PN ---
Progress Note (short form) - Note Progress Note: SUBJECTIVE Feels better. Dyspnea improving. Denies CP/orthopnea/PND. No fever/chills/cough/ sputum OBJECTIVE T 99.2 overnight. Hemodynamically Stable. Last Vital Signs Temp Pulse Resp BP Pulse Ox 98.5 F 71 20 132/60 98 01/25/18 14:00 01/25/18 14:00 01/25/18 14:00 01/25/18 14:00 01/25/18 09:00 HEENT - Atraumatic, Normocephalic. No pharyngeal erythema/exudate Heart - S1, S2, RRR Lungs - few basal crackles L>R Abdomen - Soft, non-tender. Bowel Sounds normal. Extrmeties - bilateral LE edema with chronic venous stasis skin changes R>L Neuro - AAO x 2. Moving all 4 extremities. Laboratory Results - last 24 hr 01/25/18 01/25/18 01/25/18 06:28 13:30 16:26 Sodium 140 Potassium 4.2 Chloride 108 H Carbon Dioxide 27 Anion Gap 5 L BUN 19 H Creatinine 1.5 H Creat Clearance w eGFR 46.54 POC Glucometer 101 Random Glucose 92 Calcium 8.1 L Magnesium 2.1 Urine Color Colorless Urine Appearance Clear Urine pH 7.0 D Ur Specific [place] 1.005 L Urine Protein Negative Urine Glucose (UA) Negative Urine Ketones Negative Urine Blood Negative Urine Nitrite Negative Urine Bilirubin Negative Urine Urobilinogen Negative Ur Leukocyte Esterase Negative Current Medications Generic Name Dose Route Start Last Admin Trade Name Freq PRN Reason Stop Dose Admin Atorvastatin Calcium 20 mg 01/24/18 22:00 01/24/18 21:18 Lipitor - PO 20 mg HS CARSON Administration Furosemide 40 mg 01/26/18 10:00 Lasix - PO DAILY [facility] Heparin Sodium (Porcine) 5,000 unit 01/23/18 22:00 01/25/18 14:49 Heparin - SQ 5,000 unit TID [facility] Administration Lisinopril 5 mg 01/24/18 10:00 01/25/18 10:33 Prinivil PO 5 mg DAILY [facility] Administration Metoprolol Succinate 50 mg 01/25/18 10:00 01/25/18 10:33 Toprol Xl - PO 50 mg DAILY [facility] Administration ASSESSMENT/PLAN 67 year old male with a history of Chronic systolic CHF, HTN, Severe Mitral Regurgitation, Severe Tricuspid regurgitation, non-compliant with medication for at least 2 years presents to ED with increasing shortness of breath on exertion for 1-2 weeks and a few recent episodes of Hematuria. No chest pain/palpitations/orthopnea/PND. No abdominal pain/dysuria. CXR - Cardiomegaly with L basal atelectasis +/- fluid 1. Hypertensive Urgency - now resolved after IV Labetolol in ED and resumption of home medications Metoprolol and Lisinopril. 2. Acute on Chronic systolic CHF exacerbation with severe MR/TR CXR - as above BNP 512 Echo - EF 35-40%, global hypokinesis. Mild to Moderate MR. Continue IV Lasix with daily weight/I and Os/ renal function monitoring. Chest pain free. Serial TropI 0.02 > 0.04 > 0.05. No chest discomfort. ECG - LVH, tachy, no acute changes. Cardiology following. Continue ASA, BB, YANY-I, Statin 3. HLD - Resumed on Lipitor. 4. Hematuria H/H stable. Urinalysis negative for blood. Renal US - normal. For out-patient Urology follow up. 5. Hypomagnesemia - resolved s/p repletion. DVT Px- Heparin SQ - will hold if any ongoing hematuria. Visit type - Emergency Visit Emergency Visit: Yes ED Registration Date: 01/23/18 Care time: The patient presented to the Emergency Department on the above date and was hospitalized for further evaluation of their emergent condition. - New Patient This patient is new to me today: No - Critical Care Critical Care patient: No - Discharge Referral Referred to [facility] Med P.C.: No
[2018-01-25] MEDS: ATORVASTATIN CA 20 MG TABLET (FP) PO SCH (22:12)
[2018-01-26] MEDS: HEPARIN NA (PORCINE) 5,000 UNITS/ML 1ML VIAL SQ SCH ×3 (05:37→21:17)
[2018-01-26 08:43] LABS: ANION GAP 8 MMOL/L (8-16); BLOOD UREA NITROGEN 23 mg/dL (7-18); CALCIUM 8.7 mg/dL (8.5-10.1); CHLORIDE 104 mmol/L (98-107); CO2 27 mmol/L (21-32); CREATININE 1.4 mg/dL (0.55-1.3); GLUCOSE,RANDOM 100 mg/dL (74-106); POTASSIUM 4.1 mmol/L (3.5-5.1); SODIUM 139 mmol/L (136-145)
[2018-01-26] MEDS: LISINOPRIL 5 MG TABLET (FP) PO SCH (09:51)
[2018-01-26] MEDS: FUROSEMIDE 40 MG TABLET (FP) PO SCH (09:51)
--- NOTE | 2018-01-26 10:30 | PN ---
Progress Note, Physician Chief Complaint: Pt A&Ox3; asymptoamtic. History of Present Illness: The patient is a 67 year old black male, with a significant PMH of HTN and CHF ( NC with meds for 2 years), who presents to the emergency department today for dyspnea on exertion, as per request of Dr. Arauz. Patient saw earlier today for SOB and hematuria for 1 week, and was advised to go to the ED to be admitted. Patient notes he typically walks 3.5 blocks daily, but can no longer walk for more than 1 block or uphill without feeling SOB. He also reports associated orthopnea and LE edema. Patient notes there has been blood in his urine, but denies dysuria. - Current Medication List Current Medications: Active Medications Atorvastatin Calcium (Lipitor -) 20 mg PO HS [facility] Last Admin: 01/25/18 22:12 Dose: 20 mg Furosemide (Lasix -) 40 mg PO DAILY [facility] Last Admin: 01/26/18 09:51 Dose: 40 mg Heparin Sodium (Porcine) (Heparin -) 5,000 unit SQ TID [facility] Last Admin: 01/26/18 05:37 Dose: 5,000 unit Lisinopril (Prinivil) 5 mg PO DAILY [facility] Last Admin: 01/26/18 09:51 Dose: 5 mg Metoprolol Succinate (Toprol Xl -) 50 mg PO DAILY [facility] [place] Last Admin: 01/26/18 09:51 Dose: 50 mg - Objective Vital Signs: Vital Signs Temperature 98.3 F 01/26/18 08:56 Pulse Rate 86 01/26/18 08:56 Respiratory Rate 20 01/26/18 08:56 Blood Pressure 148/82 01/26/18 08:56 O2 Sat by Pulse Oximetry (%) 98 01/25/18 21:00 Constitutional: Yes: No Distress Eyes: Yes: WNL HENT: Yes: WNL Neck: Yes: WNL Cardiovascular: Yes: Regular Rate and Rhythm, S1, S2, S4 Respiratory: Yes: WNL Gastrointestinal: Yes: Soft ...Rectal Exam: Yes: Deferred Genitourinary: No: Anuria Breast(s): Yes: WNL Musculoskeletal: Yes: Muscle Weakness Extremities: Yes: Cool Edema: No Peripheral Pulses WNL: No Peripheral Pulses: Left Doralis Pedis: 1+, Right Dorsalis Pedis: 1+ Integumentary: Yes: Venous Stasis Changes Neurological: Yes: Alert, Oriented, Weakness Psychiatric: Yes: Alert, Oriented Labs: CBC, BMP 01/24/18 08:30 01/26/18 05:50 INR, PTT INR 1.09 (0.83-1.09) 01/23/18 15:17 Problem List - Problems (1) Accelerated hypertension Code(s): I10 - ESSENTIAL (PRIMARY) HYPERTENSION (2) Acute on chronic combined systolic and diastolic ACC/AHA stage C congestive heart failure Assessment/Plan: Increase metoprolol ER to 100 mg daily brief (episode of "slow" NSVT early this morning). Continue lisinopril; increase dose gradually as tolerated. Consider spironolactone. On PO furosemide; gradual improvement in renal parameters. F/u Is and Os, daily weight, BUN/Cr, electrolytes. F/u TSH. The importance of alcohol cessation was discussed. Code(s): I50.43 - ACUTE ON CHRONIC COMBINED SYSTOLIC AND DIASTOLIC HRT FAIL (3) Dyspnea and respiratory abnormalities Code(s): R06.00 - DYSPNEA, UNSPECIFIED; R06.89 - OTHER ABNORMALITIES OF BREATHING (4) Pleural effusion Code(s): J90 - PLEURAL EFFUSION, NOT ELSEWHERE CLASSIFIED (5) Alcoholism Code(s): F10.20 - ALCOHOL DEPENDENCE, UNCOMPLICATED
[2018-01-26] MEDS ORDERED: LISINOPRIL 5 MG TABLET (FP) PO ONE (10:38)
--- NOTE | 2018-01-26 12:13 | PN ---
Progress Note (short form) - Note Progress Note: SUBJECTIVE Feels well - dyspnea improved. Denies CP/orthopnea/PND. No fever/chills/cough/ sputum OBJECTIVE Afebrile. Hemodynamically Stable. Last Vital Signs Temp Pulse Resp BP Pulse Ox 98.3 F 86 20 148/82 98 01/26/18 08:56 01/26/18 08:56 01/26/18 08:56 01/26/18 08:56 01/25/18 21:00 HEENT - Atraumatic, Normocephalic. No pharyngeal erythema/exudate Heart - S1, S2, RRR Lungs - few basal crackles Abdomen - Soft, non-tender. Bowel Sounds normal. Extrmeties - bilateral LE edema with chronic venous stasis skin changes R>L Neuro - AAO x 2. Moving all 4 extremities. Laboratory Results - last 24 hr 01/25/18 01/25/18 01/26/18 13:30 16:26 05:50 Sodium 139 Potassium 4.1 Chloride 104 Carbon Dioxide 27 Anion Gap 8 BUN 23 H Creatinine 1.4 H Creat Clearance w eGFR 50.40 POC Glucometer 101 Random Glucose 100 Calcium 8.7 Urine Color Colorless Urine Appearance Clear Urine pH 7.0 D Ur Specific [place] 1.005 L Urine Protein Negative Urine Glucose (UA) Negative Urine Ketones Negative Urine Blood Negative Urine Nitrite Negative Urine Bilirubin Negative Urine Urobilinogen Negative Ur Leukocyte Esterase Negative Current Medications Generic Name Dose Route Start Last Admin Trade Name Freq PRN Reason Stop Dose Admin Atorvastatin Calcium 20 mg 01/24/18 22:00 01/25/18 22:12 Lipitor - PO 20 mg HS CARSON Administration Furosemide 40 mg 01/26/18 10:00 01/26/18 09:51 Lasix - PO 40 mg DAILY [facility] Administration Heparin Sodium (Porcine) 5,000 unit 01/23/18 22:00 01/26/18 05:37 Heparin - SQ 5,000 unit TID CARSON Administration Lisinopril 5 mg 01/27/18 10:00 Prinivil PO DAILY [facility]SON Metoprolol Succinate 100 mg 01/27/18 10:00 Toprol Xl - PO DAILY [facility] ASSESSMENT/PLAN 67 year old male with a history of Chronic systolic CHF, HTN, Severe Mitral Regurgitation, Severe Tricuspid regurgitation, non-compliant with medication for at least 2 years presents to ED with increasing shortness of breath on exertion (especially when walking up hills) for 1-2 weeks and a few recent episodes of Hematuria. Reports LE edema but no chest pain/palpitations/PND. No abdominal pain/dysuria. CXR - Cardiomegaly with L basal atelectasis +/- fluid 1. Hypertensive Urgency - now resolved after IV Labetolol in ED and resumption of home medications Metoprolol and Lisinopril. BP on high side this AM - 161/85 - Metoprolol dose increased to 100mg. Will monitor. 2. Acute on Chronic systolic CHF exacerbation with severe MR/TR CXR - as above BNP 512 Echo - EF 35-40%, global hypokinesis. Mild to Moderate MR. IV Lasix transitioned to 40mg oral with daily weight/I and Os/ renal function monitoring. 3. Non-sustained Vtach 8 beat run overnight tele Chest pain/palpitation - free. Serial TropI 0.02 > 0.04 > 0.05. No chest discomfort. ECG - LVH, tachy, no acute changes. Toprol XL dose increased by Cardiology from 50mg to 100mg daily. 4. HLD - Resumed on Lipitor. 5. Hematuria H/H stable. Urinalysis negative for blood. Renal US - normal. ASA held. For out-patient Urology follow up. 6. Hypomagnesemia - resolved s/p repletion. DVT Px- Heparin SQ - will hold if any ongoing hematuria. Visit type - Emergency Visit Emergency Visit: Yes ED Registration Date: 01/23/18 Care time: The patient presented to the Emergency Department on the above date and was hospitalized for further evaluation of their emergent condition. - New Patient This patient is new to me today: No - Critical Care Critical Care patient: No - Discharge Referral Referred to [facility] Med P.C.: No
[2018-01-26] MEDS: ATORVASTATIN CA 20 MG TABLET (FP) PO SCH (21:17)
[2018-01-27] MEDS: HEPARIN NA (PORCINE) 5,000 UNITS/ML 1ML VIAL SQ SCH (06:12)
--- NOTE | 2018-01-27 09:58 | PN ---
Progress Note, Physician Chief Complaint: Pt A&Ox3; denies chest escobedo or palpitations History of Present Illness: The patient is a 67 year old black male, with a significant PMH of HTN and CHF ( NC with meds for 2 years), who presents to the emergency department today for dyspnea on exertion, as per request of Dr. Arauz. Patient saw earlier today for SOB and hematuria for 1 week, and was advised to go to the ED to be admitted. Patient notes he typically walks 3.5 blocks daily, but can no longer walk for more than 1 block or uphill without feeling SOB. He also reports associated orthopnea and LE edema. Patient notes there has been blood in his urine, but denies dysuria. - Current Medication List Current Medications: Active Medications Atorvastatin Calcium (Lipitor -) 20 mg PO HS [facility] Last Admin: 01/26/18 21:17 Dose: 20 mg Furosemide (Lasix -) 40 mg PO DAILY [facility] Last Admin: 01/26/18 09:51 Dose: 40 mg Heparin Sodium (Porcine) (Heparin -) 5,000 unit SQ TID [facility] Last Admin: 01/27/18 06:12 Dose: 5,000 unit Lisinopril (Prinivil) 5 mg PO DAILY [facility] Metoprolol Succinate (Toprol Xl -) 100 mg PO DAILY [facility] - Objective Vital Signs: Vital Signs Temperature 97.9 F 01/27/18 05:00 Pulse Rate 77 01/27/18 05:00 Respiratory Rate 20 01/27/18 05:00 Blood Pressure 144/93 01/27/18 05:00 O2 Sat by Pulse Oximetry (%) 98 01/26/18 20:26 Constitutional: Yes: No Distress Eyes: Yes: WNL HENT: Yes: WNL Neck: Yes: WNL Cardiovascular: Yes: Regular Rate and Rhythm Respiratory: Yes: Regular ...Rectal Exam: Yes: Deferred Genitourinary: No: Anuria Breast(s): Yes: WNL Musculoskeletal: Yes: Muscle Weakness Extremities: Yes: Cool Edema: No Peripheral Pulses WNL: No Peripheral Pulses: Left Doralis Pedis: 1+, Right Dorsalis Pedis: 1+ Integumentary: Yes: Venous Stasis Changes Neurological: Yes: Alert, Oriented, Weakness Psychiatric: Yes: Alert, Oriented Labs: CBC, BMP 01/24/18 08:30 01/26/18 05:50 INR, PTT INR 1.09 (0.83-1.09) 01/23/18 15:17 Abnormal Lab Results 01/26/18 05:50 BUN 23 H Creatinine 1.4 H - ....Imaging Other: Image Reviewed (telemetry: NSR: 3 beat run wide complex tachycardia) Problem List - Problems (1) Accelerated hypertension Assessment/Plan: metoprolol increased; may increase lisinopril (watch renal changes, howevere). Code(s): I10 - ESSENTIAL (PRIMARY) HYPERTENSION (2) Acute on chronic combined systolic and diastolic ACC/AHA stage C congestive heart failure Assessment/Plan: Increase metoprolol ER to 100 mg daily brief (episode of "slow" NSVT; one 3 beat episode last night). Continue lisinopril; increase dose gradually as tolerated. Consider spironolactone. On PO furosemide; gradual improvement in renal parameters. F/u Is and Os, daily weight, BUN/Cr, electrolytes. TSH WNL. The importance of alcohol cessation was discussed. From a cardiac standpint, pt may be followed as an outpatient. Code(s): I50.43 - ACUTE ON CHRONIC COMBINED SYSTOLIC AND DIASTOLIC HRT FAIL (3) Dyspnea and respiratory abnormalities Code(s): R06.00 - DYSPNEA, UNSPECIFIED; R06.89 - OTHER ABNORMALITIES OF BREATHING (4) Pleural effusion Code(s): J90 - PLEURAL EFFUSION, NOT ELSEWHERE CLASSIFIED (5) Alcoholism Code(s): F10.20 - ALCOHOL DEPENDENCE, UNCOMPLICATED
[2018-01-27] MEDS ORDERED: LISINOPRIL 5 MG TABLET (FP) PO SCH (10:00)
[2018-01-27] MEDS ORDERED: LISINOPRIL 10 MG TABLET (FP) PO SCH (10:00)
[2018-01-27] MEDS: FUROSEMIDE 40 MG TABLET (FP) PO SCH (10:21)
--- NOTE | 2018-01-27 12:07 | DS ---
Physical Exam: SUBJECTIVE: Patient seen and examined. Feels better - no further SOB/CP/ Palpitations OBJECTIVE: Afebrile/Hemodynamically stable Last Vital Signs Temp Pulse Resp BP Pulse Ox 98.2 F 67 20 142/78 98 01/27/18 09:00 01/27/18 09:00 01/27/18 09:00 01/27/18 09:00 01/26/18 20:26 PHYSICAL EXAM GENERAL: The patient is awake, alert, and fully oriented, in no acute distress. HEAD: Normal with no signs of trauma. EYES: PERRL, extraocular movements intact, sclera anicteric LUNGS: Breath sounds equal, clear to auscultation bilaterally, no wheezes, no crackles, no accessory muscle use. HEART: Regular rate and rhythm, S1, S2 without murmur, rub or gallop. ABDOMEN: Soft, nontender, nondistended, normoactive bowel sounds. EXTREMITIES: bilateral LE edema with chronic venous stasis skin changes R>L NEUROLOGICAL: Cranial nerves II through XII grossly intact.Tone/Power normal all 4 extremities. PSYCH: Normal mood, normal affect. AAO x 2 - at baseline. LABS Laboratory Tests 01/23/18 01/23/18 01/23/18 08:30 15:10 15:17 WBC 6.7 RBC 4.57 Hgb 14.7 Hct 42.0 MCV 91.9 MCH 32.2 MCHC 35.1 RDW 13.2 Plt Count 175 MPV 10.1 Absolute Neuts (auto) 5.7 Neutrophils % 84.3 H Lymphocytes % 7.6 L Monocytes % 6.6 Eosinophils % 1.1 D Basophils % 0.4 Nucleated RBC % 0 PT with INR INR Sodium Potassium Chloride Carbon Dioxide Anion Gap BUN Creatinine Creat Clearance w eGFR POC Glucometer Random Glucose Calcium Magnesium Total Bilirubin AST ALT Alkaline Phosphatase Creatine Kinase Troponin I B-Natriuretic Peptide Total Protein Albumin TSH Urine Color Urine Appearance Urine pH Ur Specific [place] Urine Protein Urine Glucose (UA) Urine Ketones Urine Blood Urine Nitrite Urine Bilirubin Urine Urobilinogen Ur Leukocyte Esterase Blood Type O POSITIVE O POSITIVE Antibody Screen Negative 01/23/18 01/23/18 01/23/18 15:17 15:17 19:18 WBC RBC Hgb Hct MCV MCH MCHC RDW Plt Count MPV Absolute Neuts (auto) Neutrophils % Lymphocytes % Monocytes % Eosinophils % Basophils % Nucleated RBC % PT with INR 12.90 INR 1.09 Sodium 137 Potassium 4.1 Chloride 105 Carbon Dioxide 26 Anion Gap 6 L BUN 15 Creatinine 1.3 Creat Clearance w eGFR 54.90 POC Glucometer Random Glucose 103 Calcium 8.3 L Magnesium 1.7 L Total Bilirubin 0.6 AST 23 ALT 24 Alkaline Phosphatase 72 Creatine Kinase 128 116 Troponin I 0.02 0.04 B-Natriuretic Peptide 512.7 H Total Protein 6.5 Albumin 3.6 TSH Urine Color Urine Appearance Urine pH Ur Specific [place] Urine Protein Urine Glucose (UA) Urine Ketones Urine Blood Urine Nitrite Urine Bilirubin Urine Urobilinogen Ur Leukocyte Esterase Blood Type Antibody Screen 01/24/18 01/24/18 01/25/18 08:30 08:30 06:28 WBC 5.3 RBC 4.34 Hgb 13.8 Hct 39.6 MCV 91.3 MCH 31.9 MCHC 35.0 RDW 13.2 Plt Count 179 MPV 9.8 Absolute Neuts (auto) Neutrophils % Lymphocytes % Monocytes % Eosinophils % Basophils % Nucleated RBC % PT with INR INR Sodium 138 140 Potassium 4.3 4.2 Chloride 107 108 H Carbon Dioxide 26 27 Anion Gap 6 L 5 L BUN 13 19 H Creatinine 1.4 H 1.5 H Creat Clearance w eGFR 50.40 46.54 POC Glucometer Random Glucose 95 92 Calcium 7.9 L 8.1 L Magnesium 1.8 2.1 Total Bilirubin AST ALT Alkaline Phosphatase Creatine Kinase 94 Troponin I 0.05 B-Natriuretic Peptide Total Protein Albumin TSH Urine Color Urine Appearance Urine pH Ur Specific [place] Urine Protein Urine Glucose (UA) Urine Ketones Urine Blood Urine Nitrite Urine Bilirubin Urine Urobilinogen Ur Leukocyte Esterase Blood Type Antibody Screen 01/25/18 01/25/18 01/26/18 13:30 16:26 05:50 WBC RBC Hgb Hct MCV MCH MCHC RDW Plt Count MPV Absolute Neuts (auto) Neutrophils % Lymphocytes % Monocytes % Eosinophils % Basophils % Nucleated RBC % PT with INR INR Sodium 139 Potassium 4.1 Chloride 104 Carbon Dioxide 27 Anion Gap 8 BUN 23 H Creatinine 1.4 H Creat Clearance w eGFR 50.40 POC Glucometer 101 Random Glucose 100 Calcium 8.7 Magnesium Total Bilirubin AST ALT Alkaline Phosphatase Creatine Kinase Troponin I B-Natriuretic Peptide Total Protein Albumin TSH 2.51 Urine Color Colorless Urine Appearance Clear Urine pH 7.0 D Ur Specific [place] 1.005 L Urine Protein Negative Urine Glucose (UA) Negative Urine Ketones Negative Urine Blood Negative Urine Nitrite Negative Urine Bilirubin Negative Urine Urobilinogen Negative Ur Leukocyte Esterase Negative Blood Type Antibody Screen Date of Admission:01/23/18 Date of Discharge: 01/27/18 Minutes to complete discharge: 45 Discharge Summary Reason For Visit: MALIGNANT HYPERTENSION/CHF Current Active Problems Alcoholism (Acute) Congestive heart failure (CHF) (Acute) Hypertensive urgency (Acute) Hospital Course: 67 year old male with a history of Chronic systolic CHF, HTN, Severe Mitral Regurgitation, Severe Tricuspid regurgitation, non-compliant with medication for at least 2 years presents to ED with increasing shortness of breath on exertion (especially when walking up hills) for 1-2 weeks and a few recent episodes of Hematuria. He reported LE edema but no chest pain/palpitations/PND. No abdominal pain/dysuria. CXR - Cardiomegaly with L basal atelectasis +/- fluid. BNP 512. He was treated for acute on chronic systolic CHF and hypertensive urgency with IV Lasix diuresis and IV labetalol initially, with transition to recommended home medications. He was evaluated by Cardiology with up-titration of medications with arrangement for outpatient follow up. He was noted to have runs of NSVT on telemonitoring, which appears to have responded to increase in Toprol XL dose to 100mg daily. 1. Hypertensive Urgency - now resolved after IV Labetolol in ED and resumption of home medications Metoprolol and Lisinopril. 2. Acute on Chronic systolic CHF exacerbation with severe MR/TR CXR - as above BNP 512 Echo - EF 35-40%, global hypokinesis. Mild to Moderate MR. IV Lasix transitioned to 40mg oral daily with outpatient Cardiology follow up in 1 week. Will require checking of renal function at that time. 3. Non-sustained Vtach runs on tele - less frequent with increased Metoprolol dose. Chest pain/palpitation - free. Serial TropI 0.02 > 0.04 > 0.05. No chest discomfort. ECG - LVH, tachy, no acute changes. Toprol XL dose increased by Cardiology from 50mg to 100mg daily. 4. HLD - Resumed on Lipitor 20mg. 5. Hematuria - resolved. H/H stable. Urinalysis negative for blood. Renal US - normal. For out-patient Urology follow up. 6. Hypomagnesemia - resolved s/p repletion. 7. Cognitive Impairment/Dementia - mental status at baseline. AAO x 2. Patient appears functional and verbalizes understanding regarding medication compliance and importance of Cardiology and PCP follow up. He is medically and hemodynamically stable for discharge on recommended medications. Adherence to medication regimen stressed and importance of Cardiology follow up endorsed. Condition: Good - Instructions Diet, Activity, Other Instructions: Sodium controlled diet Please follow with Cardiology and ensure compliance with medications Referrals: Reyes Arauz MD [Primary Care Provider] - 1 Week Nadine Cabrera MD [Staff Physician] - Disposition: HOME - Home Medications Comprehensive Discharge Medication List: Ambulatory Orders Atorvastatin Ca [Lipitor] 20 mg PO HS 30 Days #30 tablet 01/27/18 Furosemide [Lasix -] 40 mg PO DAILY 30 Days #30 tablet 01/27/18 Lisinopril [Prinivil] 10 mg PO DAILY 30 Days #30 tablet 01/27/18 Metoprolol Succinate [Toprol XL -] 100 mg PO DAILY 30 Days #30 tab.sr.24h Problem List - Problems (1) Congestive heart failure (CHF) Code(s): I50.9 - HEART FAILURE, UNSPECIFIED Qualifiers: Heart failure type: unspecified Heart failure chronicity: unspecified Qualified Code(s): I50.9 - Heart failure, unspecified (2) Hypertensive urgency Code(s): I16.0 - HYPERTENSIVE URGENCY This patient is new to me today: No Emergency Visit: Yes ED Registration Date: 01/23/18 Care time: The patient presented to the Emergency Department on the above date and was hospitalized for further evaluation of their emergent condition. Critical Care patient: No - Discharge Referral Referred to [facility] No
[2018-01-27 17:38] VITALS: BP 142/92; PULSE 70; TEMP 98.2
== END 2018-01-27 17:37 | disposition home or self-care (01) | DRG 304 ==
LOC: JER 14:50 → JERBED 15:15 → J4W 01-24 18:23
PROVIDERS: ADMIT Internal Medicine
DX: I16.0 Hypertensive urgency (principal); I50.43 Acute on chronic combined systolic (congestive) and diastolic (congestive) heart failure; J98.11 Atelectasis; I47.1 Supraventricular tachycardia; I11.0 Hypertensive heart disease with heart failure; I34.0 Nonrheumatic mitral (valve) insufficiency; I36.1 Nonrheumatic tricuspid (valve) insufficiency; Z91.14 Patient's other noncompliance with medication regimen; E78.5 Hyperlipidemia, unspecified; R31.9 Hematuria, unspecified; E83.42 Hypomagnesemia; F10.20 Alcohol dependence, uncomplicated
CPT/HCPCS: 36415; 71045-TC-FY; 76775-TC; 80048; 80053; 81003; 82550; 82962; 83735; 83880; 84443; 84484; 85025; 85027; 85610; 86850; 86900; 86901; 93005; 93010; 93306-TC; 99285-25; J1644

== ENCOUNTER 2018-03-20 17:55 | Inpatient (IN) | payer OTHER ==
[2018-03-20 18:11] VITALS: BMI 28.8
[2018-03-20] MEDS ORDERED: ASPIRIN 81 MG CHEWABLE TABLETS PO ONE (18:11)
--- NOTE | 2018-03-20 18:11 | PDOC ---
Rapid Medical Evaluation Time Seen by Provider: 03/20/18 18:07 Medical Evaluation: Allergies Allergy/AdvReac Type Severity Reaction Status Date / Time No Known Allergies Allergy Verified 01/23/18 15:28 03/20/18 18:07 I have performed a brief in-person evaluation of this patient. The patient presents with a chief complaint of:sent by PMD for hypertension 215/ 131 in office no symptoms Pertinent physical exam findings:NAD I have ordered the following:Metoprolol cardiac w/u The patient will proceed to the ED for further evaluation. 03/20/18 18:10 03/20/18 18:10 Discharge Disposition - Diagnosis Hypertension - Referrals - Patient Instructions - Post Discharge Activity
[2018-03-20] MEDS ORDERED: ASPIRIN 81 MG CHEWABLE TABLETS ONE (18:48)
--- NOTE | 2018-03-20 19:09 | PDOC ---
History of Present Illness - General Chief Complaint: Blood Pressure Problem Stated Complaint: SENT BY PCP HTN Time Seen by Provider: 03/20/18 18:07 - History of Present Illness Initial Comments: 03/20/18 19:10 67 year old male, with a significant PMH of HTN and CHF (inconsistence compliance), who presents to the emergency department from Urologist's office and was found to have blood pressure in the 200s/130s. The patient reports that he has been trying to get a med refill of all medications which include metoprolol, lasix, lisinopril, lipitor for approx 2 weeks and he has been noncompliant with all meds for 2 weeks. The patient denies any headache, nausea , lightheadedness, dizziness, changes in vision, hearing, chest pain, shortness of breath, increased swelling in the arms or legs, recent illness, n/v/d/c, abdominal pain or any other complaints. The patient has an appt on Sunday with PCP in hopes of getting meds refilled. BP in triage 231/ 141 Past History - Past Medical History Allergies/Adverse Reactions: Allergies Allergy/AdvReac Type Severity Reaction Status Date / Time No Known Allergies Allergy Verified 03/20/18 18:11 Home Medications: Ambulatory Orders Atorvastatin Ca [Lipitor] 20 mg PO HS 30 Days #30 tablet 01/27/18 Furosemide [Lasix -] 40 mg PO DAILY 30 Days #30 tablet 01/27/18 Lisinopril [Prinivil] 10 mg PO DAILY 30 Days #30 tablet 01/27/18 Metoprolol Succinate [Toprol XL -] 100 mg PO DAILY 30 Days #30 tab.sr.24h Cardiac Disorders: Yes COPD: No CHF: Yes Diabetes: Yes HTN: Yes - Immunization History Immunization Up to Date: Yes - Suicide/Smoking/Psychosocial Hx Smoking History: Never smoked Have you smoked in the past 12 months: No Information on smoking cessation initiated: No Hx Alcohol Use: No Drug/Substance Use Hx: No Substance Use Type: None *Physical Exam - Vital Signs Last Vital Signs Temp Pulse Resp BP Pulse Ox 99.4 F 110 H 19 234/131 H 99 03/20/18 18:10 03/20/18 18:10 03/20/18 18:10 03/20/18 18:10 03/20/18 18:10 - Physical Exam Comments: 03/20/18 19:47 unremarkable exam Moderate Sedation - Procedure Monitoring Vital Signs: Procedure Monitoring Vital Signs Temperature 99.4 F 03/20/18 18:10 Pulse Rate 110 H 03/20/18 18:10 Respiratory Rate 19 03/20/18 18:10 Blood Pressure 234/131 H 03/20/18 18:10 O2 Sat by Pulse Oximetry (%) 99 03/20/18 18:10 ED Treatment Course - LABORATORY CBC & Chemistry Diagram: 03/20/18 19:02 03/20/18 20:00 - Medications Given in the ED: ED Medications Discontinued Medications Generic Name Dose Route Start Last Admin Trade Name Rodneyq PRN Reason Stop Dose Admin Aspirin 162 mg 03/20/18 18:11 03/20/18 19:02 Asa - PO 03/20/18 18:12 162 mg ONCE ONE Administration Metoprolol Succinate 50 mg 03/20/18 18:09 03/20/18 19:01 Toprol Xl - PO 03/20/18 18:10 50 mg ONCE ONE Administration Medical Decision Making - Medical Decision Making 03/20/18 19:47 67 year old male, with a significant PMH of HTN and CHF (inconsistence compliance), who presents to the emergency department from Urologist's office and was found to have blood pressure in the 200s/130s. The patient reports that he has been trying to get a med refill of all medications which include metoprolol, lasix, lisinopril, lipitor for approx 2 weeks and he has been noncompliant with all meds for 2 weeks. The patient denies any headache, nausea , lightheadedness, dizziness, changes in vision, hearing, chest pain, shortness of breath, increased swelling in the arms or legs, recent illness, n/v/d/c, abdominal pain or any other complaints. ED Course: Patient with HTN urgency 2/2 noncompliance BP after metoprolol 50 - 217/151 *DC/Admit/Observation/Transfer Diagnosis at time of Disposition: Hypertension, Hypertensive urgency - Discharge Dispostion Condition at time of disposition: Fair Decision to Admit order: Yes - Referrals - Patient Instructions - Post Discharge Activity
[2018-03-20 19:16] LABS: BASO % 0.8 % (0-2.0); EOS % 1.3 % (0-4.5); HEMATOCRIT 43.7 % (35.4-49); HEMOGLOBIN 15.3 GM/dL (11.7-16.9); LYMPH % 12.3 % (8-40); MCH 31.6 pg (25.7-33.7); MCHC 34.9 g/dl (32.0-35.9); MEAN CELL VOLUME 90.4 fl (80-96); MEAN PLT VOLUME 10.2 fl (7.5-11.1); MONO % 8.6 % (3.8-10.2); PLATELET COUNT 192 K/MM3 (134-434); RBC 4.83 M/mm3 (4.00-5.60); RDW 13.5 % (11.9-15.9); WHITE BLOOD COUNT 6.7 K/mm3 (4.0-10.0)
--- NOTE | 2018-03-20 19:24 | PDOC ---
Attending Attestation - HPI HPI: This patient is a 67 year old male with PMHx of HTN and CHF, noncompliant with meds, who presents to the ED from the Urologists office and was found to have elevated bp (200s/130s). Patients family member states that he was last here at [place] for similar complaint. He was given 30 days worth of pills and he states that he has ran out of his meds for the past 2 weeks. He has an appt with his PCP on Sunday. Patient does not have a headache or any other complaints. PCP: Dr. Ruslan Briscoe 03/20/18 20:03 - Physicial Exam PE: Agree with Resident's Exam 03/20/18 20:03 <Ciarra Farooq - Last Filed: 03/20/18 20:03> - Resident Resident Name: Gretchen Pereyra - ED Attending Attestation I have performed the following: I have examined & evaluated the patient, The case was reviewed & discussed with the resident, I agree w/resident's findings & plan - Critical Care Time Total Critical Care Time: 40 Critical Care Statement: The care of this patient involved high complexity decision making to prevent further life threatening deterioration of the patient 's condition and/or to evaluate & treat vital organ system(s) failure or risk of failure. - Medical Decision Making 03/20/18 21:15 67-year-old male sent over by his urologist for elevated blood pressure found incidentally on office visit Patient and family admit that he has been off his medications including metoprolol and Lasix for 2 weeks due to inability to get prescription refills Patient given 50 mg of metoprolol on initial evaluation, Lasix 40 mg was given as well Repeat blood pressure improved at 157/88 Patient remains asymptomatic EKG is unchanged He will be admitted for hypertensive urgency to the medical service as he is unable to refill prescriptions at this time and does not have an appointment with his primary care until Sunday <Carol Sanchez - Last Filed: 03/20/18 21:18>
[2018-03-20 19:34] LABS: PROTHROMBIN TIME (PATIENT) 11.8 SEC (9.7-13.0)
[2018-03-20] MEDS ORDERED: LABETALOL HCL 5 MG/1 ML (100MG/20 ML VIAL) IVPUSH ONE (19:41)
[2018-03-20] MEDS ORDERED: FUROSEMIDE 40 MG/4 ML INJECTABLE VIAL IVPUSH ONE (19:41)
[2018-03-20 20:56] LABS: ALBUMIN 3.6 g/dl (3.4-5.0); ALK PHOS 64 U/L (45-117); ANION GAP 8 MMOL/L (8-16); BILIRUBIN,TOTAL 0.4 mg/dL (0.2-1); BLOOD UREA NITROGEN 18 mg/dL (7-18); CALCIUM 8.6 mg/dL (8.5-10.1); CHLORIDE 105 mmol/L (98-107); CO2 24 mmol/L (21-32); CREATININE 1.1 mg/dL (0.55-1.3); GLUCOSE,RANDOM 91 mg/dL (74-106); N-TERMINAL BNP 891.5 pg/ml (5-125); SGOT/AST 19 U/L (15-37); SGPT/ALT 22 U/L (13-61); SODIUM 137 mmol/L (136-145); TOT PROT 6.9 g/dl (6.4-8.2)
[2018-03-21 08:29] LABS: ALBUMIN 3.1 g/dl (3.4-5.0); ALK PHOS 56 U/L (45-117); ANION GAP 4 MMOL/L (8-16); BILIRUBIN,TOTAL 0.8 mg/dL (0.2-1); BLOOD UREA NITROGEN 19 mg/dL (7-18); CALCIUM 8.4 mg/dL (8.5-10.1); CHLORIDE 104 mmol/L (98-107); CO2 29 mmol/L (21-32); CREATININE 1.3 mg/dL (0.55-1.3); GLUCOSE,RANDOM 94 mg/dL (74-106); POTASSIUM 4.3 mmol/L (3.5-5.1); SGOT/AST 19 U/L (15-37); SGPT/ALT 18 U/L (13-61); SODIUM 137 mmol/L (136-145); TOT PROT 6.2 g/dl (6.4-8.2)
--- NOTE | 2018-03-21 08:33 | CON.CARD ---
Consult Referred by:: Dr. Cabrera Reason for Consultation:: Hypertension - History of Present Illness Chief Complaint: Uncontrolled HTN History of Present Illness: 67 year old male, with a significant PMH of HTN and CHF (inconsistence compliance), who presents to the emergency department from Urologist's office and was found to have blood pressure in the 200s/130s. The patient reports that he has been trying to get a med refill of all medications which include metoprolol, lasix, lisinopril, lipitor for approx 2 weeks and he has been noncompliant with all meds for 2 weeks. The patient denies any headache, nausea , lightheadedness, dizziness, changes in vision, hearing, chest pain, shortness of breath, increased swelling in the arms or legs, recent illness, n/v/d/c, abdominal pain or any other complaints. The patient has an appt on Sunday with PCP in hopes of getting meds refilled. BP in triage 231/ 141 Patient denies CP, SOB, Neuro symptoms: denies blurry vision, focal weakness. - History Source History Provided By: Patient, Medical Record - Past Medical History Cardio/Vascular: Yes: CHF, HTN. No: AFIB, Aneurysm, Aortic Insufficiency, Aortic Stenosis, CAD, Deep Vein Thrombosis, Hyperlipdemia, AL, Mitral Insufficiency, Mitral Stenosis, Murmur, Pulmonary Hypertension, Other Pulmonary: No: Asthma, Bronchitis, Cancer, COPD, O2 Dependent, Pneumonia, Previously Intubated, Pulmonary Embolus, Pulmonary Fibrosis, Sleep Apnea, Other Gastrointestinal: No: Ascites, Cancer, Constipation, Crohn's Disease, Diverticulitis, Diverticulosis, Esophageal Varices, Gastritis, GERD, GI Bleed, Hemorrhoids, Hiatal Hernia, Inflamatory Bowel Disease, Irritable Bowel Disease, Pancreatitis, Peptic Ulcer Disease, Ulcerative Colitis, Other Hepatobiliary: No: Cirrhosis, Cholelithiasis, Cholecystitis, Choledocholithiasis , Hepatitis A, Hepatitis B, Hepatitis C, Other Renal/: No: Renal Failure, Renal Inusuff, BPH, Cancer, Hematuria, Hemodialysis , Neurogenic Bladder, Renal Calculi, UTI, Other Heme/Onc: No: Anemia, B12 Deficiency, Bleeding Disorder, Cancer, Current Chemotherapy, Current Radiation Therapy, Hemochromatosis, Hypercoaguable State, Myeloproliferative Synd, Sickle Cell Disease, Sickle Cell Trait, Thrombocytopenia, Other Infectious Disease: No: AIDS, C-Diff, Herpes Zoster, HIV, MRSA, STD's, Tuberculosis, VREF, Other Psych: No: Addictions, Anxiety, Bipolar, Depression, Panic, Psychosis, Schizophrenia, Other Musculoskeletal: No: Bursitis, Chronic low back pain, Hemiparesis, Hemiplegia, Osteoarthritis, Paraplegia, Other Rheumatology: No: Fibromyalgia, Gout, Lupus, Rheumatoid Arthritis, Sarcoidosis, Vasculitis, Other ENT: No: Allergic Rhinitis, Sinusitis, Other Endocrine: Yes: Diabetes Mellitus - Alcohol/Substance Use Hx Alcohol Use: No History of Substance Use: reports: None - Smoking History Smoking history: Never smoked Have you smoked in the past 12 months: No - Social History ADL: Family Assistance History of Recent Travel: No Home Medications - Allergies Allergies/Adverse Reactions: Allergies Allergy/AdvReac Type Severity Reaction Status Date / Time No Known Allergies Allergy Verified 03/20/18 18:11 - Home Medications Home Medications: Ambulatory Orders Atorvastatin Ca [Lipitor] 20 mg PO HS 30 Days #30 tablet 01/27/18 Furosemide [Lasix -] 40 mg PO DAILY 30 Days #30 tablet 01/27/18 Lisinopril [Prinivil] 10 mg PO DAILY 30 Days #30 tablet 01/27/18 Metoprolol Succinate [Toprol XL -] 100 mg PO DAILY 30 Days #30 tab.sr.24h Family Disease History - Family Disease History Family History: Unremarkable (not pertinent to this presentation) Review of Systems Findings/Remarks: see HPI - Review of Systems Constitutional: reports: No Symptoms Eyes: reports: No Symptoms HENT: reports: No Symptoms Neck: reports: No Symptoms Cardiovascular: reports: No Symptoms Respiratory: reports: No Symptoms Gastrointestinal: reports: No Symptoms Genitourinary: reports: No Symptoms Breasts: reports: No Symptoms Reported Musculoskeletal: reports: No Symptoms Integumentary: reports: No Symptoms Neurological: reports: No Symptoms Endocrine: reports: No Symptoms Hematology/Lymphatic: reports: No Symptoms Psychiatric: reports: No Symptoms - Risk Factors Known Risk Factors: Yes: Diabetes Mellitus, Hypertension Vital Signs: Vital Signs Temperature 98.1 F 03/21/18 07:36 Pulse Rate 58 L 03/21/18 07:36 Respiratory Rate 03/21/18 07:36 Blood Pressure 173/89 H 03/21/18 07:36 O2 Sat by Pulse Oximetry (%) 98 03/21/18 07:36 Constitutional: Yes: No Distress, Calm Eyes: Yes: Conjunctiva Clear, EOM Intact HENT: Yes: Atraumatic, Normocephalic Neck: Yes: Supple, Trachea Midline Respiratory: Yes: Regular, CTA Bilaterally Gastrointestinal: Yes: Soft Cardiovascular: Yes: Regular Rate and Rhythm JVD: No Carotid Bruit: No Heart Sounds: Yes: S4 Edema: Yes Edema: LLE: 1+, RLE: 1+ Peripheral Pulses WNL: Yes Neurological: Yes: Alert, Oriented ...Motor Strength: WNL Psychiatric: Yes: WNL - Other Data Labs, Other Data: CBC, BMP 03/21/18 06:54 INR, PTT INR 1.00 (0.83-1.09) 03/20/18 19:02 Troponin, BNP 03/20/18 03/20/18 03/21/18 19:02 20:00 02:30 Troponin I Cancelled 0.04 0.05 B-Natriuretic Peptide Cancelled 891.5 H Troponin, BNP 03/20/18 03/20/18 03/21/18 19:02 20:00 02:30 Troponin I Cancelled 0.04 0.05 B-Natriuretic Peptide Cancelled 891.5 H Echo: Pending Imaging - Results Chest X-ray: Report Reviewed EKG: Image Reviewed Problem List - Problems (1) Hypertension Code(s): I10 - ESSENTIAL (PRIMARY) HYPERTENSION Qualifiers: Hypertension type: essential hypertension Qualified Code(s): I10 - Essential (primary) hypertension (2) Hypertensive urgency Code(s): I16.0 - HYPERTENSIVE URGENCY (3) Abnormal ECG Code(s): R94.31 - ABNORMAL ELECTROCARDIOGRAM [ECG] [EKG] (4) Congestive heart failure (CHF) Code(s): I50.9 - HEART FAILURE, UNSPECIFIED Qualifiers: Heart failure type: unspecified Heart failure chronicity: unspecified Qualified Code(s): I50.9 - Heart failure, unspecified Assessment/Plan IMP: Chronic HTN Medication non-adherence Hypertensive urgency Chronic systolic CHF secondary to non-ischemic CM Abnormal ECG, likely due to hypertensive heart disease REC: 1. To resume home meds, which he had stopped taking. 2. Goal BP < 150/90 3. Echo for EF assessment (prior EF moderately reduced) 4. Agree with IV Lasix for 24-48 hours as he appears mildy volume overloaded with mild edema and mild BNP elevation 5. Telemetry 6. VNS may be beneficial for compliance and CHF teaching
[2018-03-21 08:40] LABS: BASO % 0.9 % (0-2.0); EOS % 2.5 % (0-4.5); HEMATOCRIT 40.3 % (35.4-49); HEMOGLOBIN 13.7 GM/dL (11.7-16.9); LYMPH % 18.4 % (8-40); MCH 31.1 pg (25.7-33.7); MCHC 34.1 g/dl (32.0-35.9); MEAN CELL VOLUME 91.3 fl (80-96); MEAN PLT VOLUME 9.7 fl (7.5-11.1); MONO % 12.5 % (3.8-10.2); NEUT % 65.7 % (42.8-82.8); PLATELET COUNT 164 K/MM3 (134-434); RBC 4.41 M/mm3 (4.00-5.60); RDW 13.5 % (11.9-15.9); WHITE BLOOD COUNT 4.4 K/mm3 (4.0-10.0)
[2018-03-21] MEDS: FUROSEMIDE 40 MG/4 ML INJECTABLE VIAL IVPUSH SCH (09:06)
[2018-03-21] MEDS: LISINOPRIL 10 MG TABLET (FP) PO SCH (09:06)
[2018-03-21] MEDS: HEPARIN NA (PORCINE) 5,000 UNITS/ML 1ML VIAL SQ SCH ×2 (09:06→21:45)
--- NOTE | 2018-03-21 15:36 | EKG ---
Test Reason : Blood Pressure : / mmHG Vent. Rate : 063 BPM Atrial Rate : 063 BPM P-R Int : 154 ms QRS Dur : 098 ms QT Int : 518 ms P-R-T Axes : 042 -20 016 degrees QTc Int : 530 ms NORMAL SINUS RHYTHM POSSIBLE LEFT ATRIAL ENLARGEMENT LEFT VENTRICULAR HYPERTROPHY ST ELEVATION, CONSIDER EARLY REPOLARIZATION, PERICARDITIS, OR INJURY PROLONGED QT ABNORMAL ECG WHEN COMPARED WITH ECG OF 20-MAR-2018 19:56, QT HAS LENGTHENED Confirmed by MANAV DORANTES MD ([id number]) on 03/21/2018 3:36:04 PM Referred By: Confirmed By:MANAV DORANTES MD
--- NOTE | 2018-03-21 15:41 | EKG ---
Test Reason : Blood Pressure : / mmHG Vent. Rate : 076 BPM Atrial Rate : 076 BPM P-R Int : 152 ms QRS Dur : 094 ms QT Int : 426 ms P-R-T Axes : 056 -28 045 degrees QTc Int : 479 ms NORMAL SINUS RHYTHM POSSIBLE LEFT ATRIAL ENLARGEMENT LEFT VENTRICULAR HYPERTROPHY ABNORMAL ECG WHEN COMPARED WITH ECG OF 23-JAN-2018 14:57, VENT. RATE HAS DECREASED BY 37 BPM CRITERIA FOR INFERIOR INFARCT ARE NO LONGER PRESENT Confirmed by MANAV DORANTES MD ([id number]) on 03/21/2018 3:41:06 PM Referred By: Confirmed By:MANAV DORANTES MD
--- NOTE | 2018-03-21 15:58 | HP ---
Admitting History and Physical - Admission History of Present Illness: Pt is a 67 y/o male with PMH significant for HTN and CHF. However pt has not taken any meds in a while. Pt presented to the emergency department bc he was at his GI's office and was found to have blood pressure in the 200s/130s. The patient reports that he has been trying to get a med refill of all medications which include metoprolol, lasix, lisinopril, lipitor for approx 2 weeks and he has been noncompliant with all meds for 2 weeks. The patient denies any headache , chest pain, palpitations/change in vision or nausea. - Past Medical History Cardiovascular: Yes: CHF, HTN Endocrine: Yes: Diabetes Mellitus - Past Surgical History Past Surgical History: Yes: None - Smoking History Smoking history: Never smoked Have you smoked in the past 12 months: No - Alcohol/Substance Use Hx Alcohol Use: No History of Substance Use: reports: None - Social History ADL: Family Assistance History of Recent Travel: No Home Medications - Allergies Allergies/Adverse Reactions: Allergies Allergy/AdvReac Type Severity Reaction Status Date / Time No Known Allergies Allergy Verified 03/20/18 18:11 - Home Medications Home Medications: Ambulatory Orders Atorvastatin Ca [Lipitor] 20 mg PO HS 30 Days #30 tablet 01/27/18 Furosemide [Lasix -] 40 mg PO DAILY 30 Days #30 tablet 01/27/18 Lisinopril [Prinivil] 10 mg PO DAILY 30 Days #30 tablet 01/27/18 Metoprolol Succinate [Toprol XL -] 100 mg PO DAILY 30 Days #30 tab.sr.24h Family Disease History - Family Disease History Family History: Unremarkable Review of Systems - Review of Systems Constitutional: reports: No Symptoms Eyes: reports: No Symptoms HENT: reports: No Symptoms Neck: reports: No Symptoms Cardiovascular: reports: No Symptoms Respiratory: reports: No Symptoms Gastrointestinal: reports: No Symptoms Genitourinary: reports: No Symptoms Physical Examination Vital Signs: Vital Signs Temperature 98.1 F 03/21/18 07:36 Pulse Rate 81 03/21/18 11:22 Respiratory Rate 18 03/21/18 11:22 Blood Pressure 158/96 03/21/18 11:22 O2 Sat by Pulse Oximetry (%) 98 03/21/18 11:22 Constitutional: Yes: Well Nourished HENT: Yes: WNL Neck: Yes: WNL, Supple Cardiovascular: Yes: WNL, Regular Rate and Rhythm Respiratory: Yes: WNL, Regular, CTA Bilaterally Gastrointestinal: Yes: WNL, Normal Bowel Sounds, Soft Musculoskeletal: Yes: WNL Extremities: Yes: WNL Edema: No Neurological: Yes: WNL, Alert, Oriented ...Motor Strength: WNL Labs: CBC, BMP 03/21/18 06:54 03/21/18 06:54 Problem List - Problems (1) Abnormal ECG Code(s): R94.31 - ABNORMAL ELECTROCARDIOGRAM [ECG] [EKG] (2) Hypertensive urgency Code(s): I16.0 - HYPERTENSIVE URGENCY
--- NOTE | 2018-03-21 16:59 | ECHO ---
Name: GREGORIO SHANE Exam:Adult Echocardiogram Study Date: 03/21/2018 09:55 AM Age: 67 yrs Reason For Study: HTN Height: 69 in Weight: 195 lb BSA: 2.0 m2 MMode/2D Measurements & Calculations IVSd: 1.1 cm Ao root diam: 3.2 cm LVIDd: 6.3 cm LA dimension: 4.4 cm LVIDs: 4.6 cm ACS: 1.9 cm LVPWd: 1.1 cm IVSs: 1.4 cm LVPWs: 1.5 cm EDV(Teich): 199.9 ml ESV(Teich): 96.4 ml Doppler Measurements & Calculations MV E max alexi: 48.6 cm/sec Ao V2 max: 132.7 cm/sec MV A max alexi: 60.0 cm/sec Ao max P.0 mmHg MV E/A: 0.81 MR max alexi: 591.3 cm/sec TR max alexi: 281.8 cm/sec MR max P.9 mmHg TR max P.8 mmHg Med Peak E' Alexi: 4.2 cm/sec Med E/e': 11.6 Lat Peak E' Alexi: 4.0 cm/sec Lat E/e': 12.2 Procedure A complete two-dimensional transthoracic echocardiogram was performed (2D, M-mode, Doppler and color flow Doppler). Left Ventricle The left ventricle is moderately dilated. Left ventricular systolic function is moderately reduced. E jection Fraction = 40-45%. There is moderate global hypokinesis of the left ventricle. Right Ventricle The right ventricle is normal in size and function. Atria The left atrium is moderately dilated. Right atrial size is normal. Mitral Valve There is moderate mitral regurgitation. Tricuspid Valve There is mild tricuspid regurgitation. Right ventricular systolic pressure is normal. Aortic Valve No hemodynamically significant valvular aortic stenosis. No aortic regurgitation is present. Pulmonic Valve There is no pulmonic valvular regurgitation. Great Vessels The aortic root is normal size. Pericardium/Pleura There is no pericardial effusion. Interpretation Summary The left ventricle is moderately dilated. Left ventricular systolic function is moderately reduced. There is moderate global hypokinesis of the left ventricle. The right ventricle is normal in size and function. The left atrium is moderately dilated. There is moderate mitral regurgitation. There is mild tricuspid regurgitation. MD Ciro Yost 03/21/2018 04:59 PM
[2018-03-21] MEDS: ATORVASTATIN CA 20 MG TABLET (FP) PO SCH (21:45)
--- NOTE | 2018-03-22 09:27 | PN ---
Progress Note, Physician Chief Complaint: No acute distress TELE: NSR, sinus jayme, PVCs - Current Medication List Current Medications: Active Medications Atorvastatin Calcium (Lipitor -) 20 mg PO HS [facility] Last Admin: 03/21/18 21:45 Dose: 20 mg Furosemide (Lasix Injection -) 40 mg IVPUSH DAILY [facility] Last Admin: 03/21/18 09:06 Dose: 40 mg Heparin Sodium (Porcine) (Heparin -) 5,000 unit SQ BID [facility] Last Admin: 03/21/18 21:45 Dose: 5,000 unit Lisinopril (Prinivil) 10 mg PO DAILY [facility] Last Admin: 03/21/18 09:06 Dose: 10 mg Metoprolol Succinate (Toprol Xl -) 100 mg PO DAILY [facility] Last Admin: 03/21/18 09:06 Dose: 100 mg - Objective Vital Signs: Vital Signs Temperature 98 F 03/22/18 06:00 Pulse Rate 57 L 03/22/18 06:00 Respiratory Rate 18 03/22/18 08:44 Blood Pressure 159/93 03/22/18 06:00 O2 Sat by Pulse Oximetry (%) 99 03/22/18 08:44 Constitutional: Yes: No Distress, Calm Eyes: Yes: Conjunctiva Clear Cardiovascular: Yes: Regular Rate and Rhythm Respiratory: Yes: CTA Bilaterally Gastrointestinal: Yes: Soft Edema: No Neurological: Yes: Alert Labs: CBC, BMP 03/21/18 06:54 03/21/18 06:54 INR, PTT INR 1.00 (0.83-1.09) 03/20/18 19:02 - ....Imaging Other: Other (Echo: Moderately reduced EF, Moderate MR) Problem List - Problems (1) Hypertension Code(s): I10 - ESSENTIAL (PRIMARY) HYPERTENSION Qualifiers: Hypertension type: essential hypertension Qualified Code(s): I10 - Essential (primary) hypertension (2) Hypertensive urgency Code(s): I16.0 - HYPERTENSIVE URGENCY (3) Abnormal ECG Code(s): R94.31 - ABNORMAL ELECTROCARDIOGRAM [ECG] [EKG] (4) Congestive heart failure (CHF) Code(s): I50.9 - HEART FAILURE, UNSPECIFIED Qualifiers: Heart failure type: unspecified Heart failure chronicity: unspecified Qualified Code(s): I50.9 - Heart failure, unspecified Assessment/Plan IMP: Chronic HTN Medication non-adherence Hypertensive urgency Chronic systolic CHF secondary to non-ischemic CM Abnormal ECG, likely due to hypertensive heart disease REC: 1. To resume home meds, which he had stopped taking. Small bump creatinine. Will add Amlodipine. 2. Goal BP < 150/90 3. Echo moderately reduced EF, moderate MR 4. IV Lasix today, plan switch PO over weekend 5. Telemetry 6. VNS may be beneficial for compliance and CHF teaching
[2018-03-22] MEDS: HEPARIN NA (PORCINE) 5,000 UNITS/ML 1ML VIAL SQ SCH ×2 (09:51→21:26)
[2018-03-22] MEDS: FUROSEMIDE 40 MG/4 ML INJECTABLE VIAL IVPUSH SCH (09:52)
[2018-03-22] MEDS: LISINOPRIL 10 MG TABLET (FP) PO SCH (09:52)
[2018-03-22] MEDS: amLODIPine BESYLATE 2.5 MG TABLET (FP) PO SCH (10:27)
[2018-03-22] MEDS: ATORVASTATIN CA 20 MG TABLET (FP) PO SCH (21:26)
--- NOTE | 2018-03-22 22:24 | PN ---
Progress Note, Physician - Current Medication List Current Medications: Active Medications Amlodipine Besylate (Norvasc -) 2.5 mg PO DAILY [facility] Last Admin: 03/22/18 10:27 Dose: 2.5 mg Atorvastatin Calcium (Lipitor -) 20 mg PO HS [facility] Last Admin: 03/22/18 21:26 Dose: 20 mg Furosemide (Lasix Injection -) 40 mg IVPUSH DAILY [facility] Last Admin: 03/22/18 09:52 Dose: 40 mg Heparin Sodium (Porcine) (Heparin -) 5,000 unit SQ BID [facility] Last Admin: 03/22/18 21:26 Dose: 5,000 unit Lisinopril (Prinivil) 10 mg PO DAILY [facility] Last Admin: 03/22/18 09:52 Dose: 10 mg Metoprolol Succinate (Toprol Xl -) 100 mg PO DAILY [facility] Last Admin: 03/22/18 10:27 Dose: 100 mg - Objective Vital Signs: Vital Signs Temperature 98.2 F 03/22/18 18:00 Pulse Rate 68 03/22/18 18:00 Respiratory Rate 18 03/22/18 18:00 Blood Pressure 136/74 03/22/18 18:00 O2 Sat by Pulse Oximetry (%) 97 03/22/18 20:54 Labs: CBC, BMP 03/21/18 06:54 03/21/18 06:54 INR, PTT INR 1.00 (0.83-1.09) 03/20/18 19:02
--- NOTE | 2018-03-23 08:38 | PN ---
Progress Note, Physician Chief Complaint: no distress TELE: NSR - Current Medication List Current Medications: Active Medications Amlodipine Besylate (Norvasc -) 2.5 mg PO DAILY [facility] Last Admin: 03/22/18 10:27 Dose: 2.5 mg Atorvastatin Calcium (Lipitor -) 20 mg PO HS [facility] Last Admin: 03/22/18 21:26 Dose: 20 mg Furosemide (Lasix Injection -) 40 mg IVPUSH DAILY [facility] Last Admin: 03/22/18 09:52 Dose: 40 mg Heparin Sodium (Porcine) (Heparin -) 5,000 unit SQ BID [facility] Last Admin: 03/22/18 21:26 Dose: 5,000 unit Lisinopril (Prinivil) 10 mg PO DAILY [facility] Last Admin: 03/22/18 09:52 Dose: 10 mg Metoprolol Succinate (Toprol Xl -) 100 mg PO DAILY [facility] Last Admin: 03/22/18 10:27 Dose: 100 mg - Objective Vital Signs: Vital Signs Temperature 98.2 F 03/23/18 07:00 Pulse Rate 57 L 03/23/18 07:00 Respiratory Rate 18 03/23/18 07:00 Blood Pressure 135/78 03/23/18 07:00 O2 Sat by Pulse Oximetry (%) 97 03/22/18 20:54 Constitutional: Yes: No Distress Cardiovascular: Yes: Regular Rate and Rhythm Respiratory: Yes: CTA Bilaterally Gastrointestinal: Yes: Soft Edema: No Neurological: Yes: Alert, Oriented Labs: CBC, BMP 03/21/18 06:54 03/21/18 06:54 INR, PTT INR 1.00 (0.83-1.09) 03/20/18 19:02 Laboratory Tests 03/21/18 03/21/18 03/22/18 02:30 06:54 02:15 Sodium 137 Potassium 4.3 Creatinine 1.3 Creatine Kinase 102 94 Troponin I 0.05 0.04 0.02 - ....Imaging EKG: Image Reviewed (TELE: NSR) Problem List - Problems (1) Hypertension Code(s): I10 - ESSENTIAL (PRIMARY) HYPERTENSION Qualifiers: Hypertension type: essential hypertension Qualified Code(s): I10 - Essential (primary) hypertension (2) Hypertensive urgency Code(s): I16.0 - HYPERTENSIVE URGENCY (3) Abnormal ECG Code(s): R94.31 - ABNORMAL ELECTROCARDIOGRAM [ECG] [EKG] (4) Congestive heart failure (CHF) Code(s): I50.9 - HEART FAILURE, UNSPECIFIED Qualifiers: Heart failure type: unspecified Heart failure chronicity: unspecified Qualified Code(s): I50.9 - Heart failure, unspecified Assessment/Plan IMP: Chronic HTN Medication non-adherence Hypertensive urgency Chronic systolic CHF secondary to non-ischemic CM Abnormal ECG, likely due to hypertensive heart disease REC: 1. BP improved now at goal. 2. Echo moderately reduced EF, moderate MR; previous stress test with no ischemia, likely NICM secondary to HTN 4. PO Lasix 5. D/C tele 6. VNS may be beneficial for compliance and CHF teaching
[2018-03-23] MEDS: amLODIPine BESYLATE 2.5 MG TABLET (FP) PO SCH (09:04)
[2018-03-23] MEDS: LISINOPRIL 10 MG TABLET (FP) PO SCH (09:04)
[2018-03-23] MEDS: HEPARIN NA (PORCINE) 5,000 UNITS/ML 1ML VIAL SQ SCH (09:04)
[2018-03-23] MEDS ORDERED: FUROSEMIDE 40 MG TABLET (FP) PO SCH (10:00)
[2018-03-23 18:46] VITALS: BP 147/82; PULSE 61; TEMP 98.2
== END 2018-03-23 19:30 | disposition home health service (06) | DRG 305 ==
LOC: JER 17:55 → JERBED 23:04 → OBSVTOIN 03-21 02:20 → J4S 03-21 18:33
PROVIDERS: ADMIT Internal Medicine; ATTEND Internal Medicine
DX: I16.0 Hypertensive urgency (principal); I50.22 Chronic systolic (congestive) heart failure; I42.9 Cardiomyopathy, unspecified; I11.0 Hypertensive heart disease with heart failure; R94.31 Abnormal electrocardiogram [ECG] [EKG]
CPT/HCPCS: 36415; 70450-TC; 71046-TC-FY; 80053; 82550; 83880; 84484; 85025; 85610; 93005; 93010; 93306-TC; 99285-25; G0378; J1644

== ENCOUNTER 2018-06-30 14:23 | Emergency (ER) | payer OTHER | END 2018-06-30 15:12 | disposition home or self-care (01) | LOC: JERFT 14:23 ==

== ENCOUNTER 2020-08-05 17:32 | Inpatient (IN) | payer OTHER ==
[2020-08-05] MEDS ORDERED: LACTATED RINGERS SOLUTION 1000 ML INFUS.BAG IV ONE (18:31)
[2020-08-05 19:13] LABS: BASO % 0.4 % (0-2.0); EOS % 1.3 % (0-4.5); HEMATOCRIT 44.2 % (35.4-49); HEMOGLOBIN 15.3 GM/dL (11.7-16.9); LYMPH % 8.2 % (8-40); MCH 29.1 pg (25.7-33.7); MCHC 34.5 g/dl (32.0-35.9); MEAN CELL VOLUME 84.3 fl (80-96); MEAN PLT VOLUME 8.9 fl (7.5-11.1); MONO % 9.6 % (3.8-10.2); NEUT % 80.5 % (42.8-82.8); PLATELET COUNT 254 10^3/uL (134-434); RBC 5.24 M/mm3 (4.00-5.60); RDW 13.6 % (11.9-15.9); WHITE BLOOD COUNT 9.2 K/mm3 (4.0-10.0)
[2020-08-05 19:33] LABS: CHLORIDE 86 mmol/L (98-107); SODIUM 132 mmol/L (136-145)
[2020-08-05 19:34] LABS: ALBUMIN 3.6 g/dl (3.4-5.0); BLOOD UREA NITROGEN 79.8 mg/dL (7-18); CALCIUM 9.5 mg/dL (8.5-10.1); CO2 34 mmol/L (21-32); GLUCOSE,RANDOM 117 mg/dL (74-106); MAGNESIUM 2.7 mg/dL (1.8-2.4)
[2020-08-05 19:37] LABS: SGOT/AST 21 U/L (15-37); SGPT/ALT 22 U/L (13-61)
[2020-08-05 19:38] LABS: CREATININE 3.7 mg/dL (0.55-1.3)
[2020-08-05 19:39] LABS: BILIRUBIN,TOTAL 0.4 mg/dL (0.2-1)
[2020-08-05 19:40] LABS: ALK PHOS 110 U/L (45-117)
[2020-08-05 19:44] LABS: ANION GAP 13 MMOL/L (8-16)
[2020-08-05] MEDS ORDERED: POTASSIUM CHLORIDE TABS 20 MEQ TABLET.ER (FP) PO ONE ×2 (19:47→20:41)
[2020-08-05] MEDS ORDERED: SODIUM CHLORIDE 1,000 ML IV SCH (20:00)
[2020-08-05] MEDS ORDERED: HEPARIN NA (PORCINE) 5,000 UNITS/ML 1ML VIAL ONE (22:27)
[2020-08-05] MEDS ORDERED: ATORVASTATIN CA 20 MG TABLET (FP) ONE (22:27)
[2020-08-05] MEDS: HEPARIN NA (PORCINE) 5,000 UNITS/ML 1ML VIAL SQ SCH (22:55)
[2020-08-05] MEDS: ATORVASTATIN CA 20 MG TABLET (FP) PO SCH (22:55)
[2020-08-05 23:31] LABS: URINE APPEARANCE Clear; URINE BILIRUBIN Negative (NEGATIVE); URINE COLOR Yellow; URINE GLUCOSE (UA) Negative (NEGATIVE); URINE KETONE Negative (NEGATIVE); URINE LEUK ESTERASE Negative (NEGATIVE); URINE NITRITE Negative (NEGATIVE); URINE PROTEIN Negative (NEGATIVE); URINE UROBILINOGEN 0.2 mg/dL (0.2-1.0)
[2020-08-06 03:45] LABS: CHLORIDE 95 mmol/L (98-107); SODIUM 137 mmol/L (136-145)
[2020-08-06 03:46] LABS: CALCIUM 8.3 mg/dL (8.5-10.1)
[2020-08-06 03:47] LABS: BLOOD UREA NITROGEN 71.2 mg/dL (7-18); CO2 33 mmol/L (21-32); GLUCOSE,RANDOM 116 mg/dL (74-106)
[2020-08-06 03:50] LABS: CREATININE 3.2 mg/dL (0.55-1.3)
[2020-08-06 04:13] LABS: ANION GAP 10 MMOL/L (8-16)
[2020-08-06] MEDS: KCL 10 MEQ IVPB 10 MEQ/100 ML INFUS.BAG IVPB SCH ×8 (04:34→18:43)
[2020-08-06] MEDS: HEPARIN NA (PORCINE) 5,000 UNITS/ML 1ML VIAL SQ SCH ×3 (05:24→21:18)
[2020-08-06 06:39] LABS: CHLORIDE 93 mmol/L (98-107); SODIUM 136 mmol/L (136-145)
[2020-08-06 06:41] LABS: BLOOD UREA NITROGEN 77.3 mg/dL (7-18); CALCIUM 8.3 mg/dL (8.5-10.1); CO2 34 mmol/L (21-32); GLUCOSE,RANDOM 123 mg/dL (74-106); MAGNESIUM 2.4 mg/dL (1.8-2.4)
[2020-08-06 06:44] LABS: SGPT/ALT 17 U/L (13-61)
[2020-08-06 06:45] LABS: CREATININE 3.1 mg/dL (0.55-1.3); SGOT/AST 15 U/L (15-37)
[2020-08-06 06:46] LABS: BILIRUBIN,TOTAL 0.5 mg/dL (0.2-1); TOT PROT 6.3 g/dl (6.4-8.2)
[2020-08-06 06:47] LABS: ALK PHOS 85 U/L (45-117)
[2020-08-06 06:55] LABS: ANION GAP 9 MMOL/L (8-16)
[2020-08-06 08:14] LABS: HEMOGLOBIN 13.2 GM/dL (11.7-16.9); MCH 29.6 pg (25.7-33.7); MCHC 34.9 g/dl (32.0-35.9); MEAN CELL VOLUME 84.8 fl (80-96); MEAN PLT VOLUME 9.3 fl (7.5-11.1); PLATELET COUNT 214 10^3/uL (134-434); RBC 4.48 M/mm3 (4.00-5.60); RDW 13.3 % (11.9-15.9)
[2020-08-06] MEDS ORDERED: D5-NS + 40 MEQ KCL - 40 MEQ/1,000 ML INFUS.BAG IV SCH (08:30)
[2020-08-06 08:58] LABS: BASO % 0.8 % (0-2.0); EOS % 1.8 % (0-4.5); HEMATOCRIT 39.9 % (35.4-49); HEMOGLOBIN 13.7 GM/dL (11.7-16.9); LYMPH % 13.5 % (8-40); MCHC 34.3 g/dl (32.0-35.9); MEAN CELL VOLUME 84.5 fl (80-96); MEAN PLT VOLUME 8.8 fl (7.5-11.1); MONO % 8.3 % (3.8-10.2); NEUT % 75.6 % (42.8-82.8); PLATELET COUNT 213 10^3/uL (134-434); RBC 4.72 M/mm3 (4.00-5.60); RDW 13.6 % (11.9-15.9); WHITE BLOOD COUNT 6.5 K/mm3 (4.0-10.0)
[2020-08-06 09:17] LABS: CHLORIDE 95 mmol/L (98-107); SODIUM 137 mmol/L (136-145)
[2020-08-06 09:19] LABS: BLOOD UREA NITROGEN 71.9 mg/dL (7-18); CALCIUM 8.6 mg/dL (8.5-10.1); CO2 33 mmol/L (21-32); GLUCOSE,RANDOM 140 mg/dL (74-106)
[2020-08-06 09:20] LABS: ALBUMIN 3.1 g/dl (3.4-5.0)
[2020-08-06 09:22] LABS: SGOT/AST 15 U/L (15-37); SGPT/ALT 19 U/L (13-61)
[2020-08-06 09:24] LABS: BILIRUBIN,TOTAL 0.6 mg/dL (0.2-1); TOT PROT 6.6 g/dl (6.4-8.2)
[2020-08-06 09:25] LABS: ALK PHOS 85 U/L (45-117); ANION GAP 10 MMOL/L (8-16)
[2020-08-06] MEDS ORDERED: POTASSIUM CHLORIDE TABS 10 MEQ TABLET.ER (FP) PO ONE (09:48)
[2020-08-06 09:52] LABS: OSMOLALITY,SERUM 305 mosm/kg (278-305)
[2020-08-06] MEDS: D5-NS + 40 MEQ KCL - 40 MEQ/1,000 ML INFUS.BAG IV SCH (10:20)
[2020-08-06] MEDS: INSULIN SLIDING SCALE (NOVOLOG) 1 VIAL SQ SCH ×3 (13:05→21:20)
[2020-08-06 13:18] VITALS: BMI 27.1
[2020-08-06 14:26] LABS: ALLENS TEST POSITIVE; ARTERIAL BLD GAS O2 SATURATION 95.5 mmHg (95-98); ARTERIAL BLOOD GAS PO2 72.5 mmHg (80-100); ARTERIAL BLOOD GAS pH 7.485 (7.350-7.450)
[2020-08-06 17:04] LABS: CALCIUM 8.9 mg/dL (8.5-10.1)
[2020-08-06 17:05] LABS: BLOOD UREA NITROGEN 61.7 mg/dL (7-18)
[2020-08-06 17:08] LABS: CREATININE 2.7 mg/dL (0.55-1.3)
[2020-08-06] MEDS ORDERED: POTASSIUM CHLORIDE TABS 20 MEQ TABLET.ER (FP) PO ONE (17:36)
[2020-08-06] MEDS: ATORVASTATIN CA 20 MG TABLET (FP) PO SCH (21:18)
[2020-08-07] MEDS: HEPARIN NA (PORCINE) 5,000 UNITS/ML 1ML VIAL SQ SCH ×3 (05:36→22:11)
[2020-08-07] MEDS: D5-NS + 40 MEQ KCL - 40 MEQ/1,000 ML INFUS.BAG IV SCH ×2 (05:36→16:00)
[2020-08-07] MEDS: INSULIN SLIDING SCALE (NOVOLOG) 1 VIAL SQ SCH ×4 (06:18→22:19)
[2020-08-07 08:03] LABS: BASO % 0.9 % (0-2.0); EOS % 3.7 % (0-4.5); HEMATOCRIT 36.9 % (35.4-49); HEMOGLOBIN 12.3 GM/dL (11.7-16.9); LYMPH % 18.4 % (8-40); MCH 28.8 pg (25.7-33.7); MCHC 33.4 g/dl (32.0-35.9); MEAN CELL VOLUME 86.3 fl (80-96); MEAN PLT VOLUME 9.5 fl (7.5-11.1); MONO % 10.5 % (3.8-10.2); NEUT % 66.5 % (42.8-82.8); PLATELET COUNT 210 10^3/uL (134-434); RBC 4.27 M/mm3 (4.00-5.60); RDW 13.5 % (11.9-15.9); WHITE BLOOD COUNT 4.8 K/mm3 (4.0-10.0)
[2020-08-07 08:27] LABS: ALBUMIN 2.8 g/dl (3.4-5.0); BLOOD UREA NITROGEN 50.2 mg/dL (7-18); CALCIUM 8.6 mg/dL (8.5-10.1); MAGNESIUM 2.3 mg/dL (1.8-2.4)
[2020-08-07 08:30] LABS: CREATININE 2.3 mg/dL (0.55-1.3); PHOSPHOROUS 1.9 mg/dL (2.5-4.9)
[2020-08-07 08:35] LABS: BILIRUBIN,TOTAL 0.2 mg/dL (0.2-1)
[2020-08-07] MEDS: ATORVASTATIN CA 20 MG TABLET (FP) PO SCH (22:11)
[2020-08-08] MEDS: HEPARIN NA (PORCINE) 5,000 UNITS/ML 1ML VIAL SQ SCH ×3 (06:25→21:02)
[2020-08-08] MEDS: INSULIN SLIDING SCALE (NOVOLOG) 1 VIAL SQ SCH ×4 (06:26→21:03)
[2020-08-08] MEDS: D5-NS + 40 MEQ KCL - 40 MEQ/1,000 ML INFUS.BAG IV SCH (09:10)
[2020-08-08] MEDS: ATORVASTATIN CA 20 MG TABLET (FP) PO SCH (21:02)
[2020-08-09] MEDS: HEPARIN NA (PORCINE) 5,000 UNITS/ML 1ML VIAL SQ SCH ×2 (05:35→14:05)
[2020-08-09] MEDS: INSULIN SLIDING SCALE (NOVOLOG) 1 VIAL SQ SCH ×3 (06:01→16:40)
[2020-08-09 06:53] LABS: HEMATOCRIT 32.8 % (35.4-49); HEMOGLOBIN 11.2 GM/dL (11.7-16.9); MCH 29.4 pg (25.7-33.7); MCHC 34.3 g/dl (32.0-35.9); MEAN CELL VOLUME 85.7 fl (80-96); MEAN PLT VOLUME 8.4 fl (7.5-11.1); PLATELET COUNT 200 10^3/uL (134-434); RBC 3.82 M/mm3 (4.00-5.60); RDW 13.5 % (11.9-15.9); WHITE BLOOD COUNT 4.9 K/mm3 (4.0-10.0)
[2020-08-09 07:20] LABS: CALCIUM 8.1 mg/dL (8.5-10.1); MAGNESIUM 1.8 mg/dL (1.8-2.4)
[2020-08-09 07:25] LABS: CREATININE 1.6 mg/dL (0.55-1.3)
[2020-08-09 07:38] LABS: BLOOD UREA NITROGEN 23.8 mg/dL (7-18)
[2020-08-09] MEDS: D5-NS + 40 MEQ KCL - 40 MEQ/1,000 ML INFUS.BAG IV SCH (10:00)
[2020-08-09] MEDS ORDERED: D5-NS + 40 MEQ KCL - 40 MEQ/1,000 ML INFUS.BAG IV SCH (10:42)
[2020-08-09 18:40] VITALS: BP 157/82; PULSE 85; TEMP 98.6
== END 2020-08-09 18:45 | disposition home health service (06) | DRG 682 ==
LOC: JER 17:32 → JERBED 20:35 → J4W 22:41
PROVIDERS: ADMIT Internal Medicine; ATTEND Family Medicine
DX: N17.9 Acute kidney failure, unspecified (principal); G93.41 Metabolic encephalopathy; I42.9 Cardiomyopathy, unspecified; E87.3 Alkalosis; I95.1 Orthostatic hypotension; N18.9 Chronic kidney disease, unspecified; E87.6 Hypokalemia; E86.0 Dehydration; E78.5 Hyperlipidemia, unspecified; I12.9 Hypertensive chronic kidney disease with stage 1 through stage 4 chronic kidney disease, or unspecified chronic kidney disease
CPT/HCPCS: 36415; 36600; 71045-TC-FY; 76775-TC; 80048; 80053; 81003; 82570; 82803; 82962; 83036; 83735; 83930; 83935; 84100; 84156; 84300; 84484; 84540; 85025; 85027; 87086; 93005; 93010; 93306-TC; 99285-25; C9803; J1644; U0003; U0005

== ENCOUNTER 2022-09-13 18:12 | Observation (INO) | payer OTHER ==
[2022-09-13] MEDS ORDERED: ACETAMINOPHEN 1000 MG/100 ML BAG IVPB ONE (20:48)
[2022-09-13] MEDS ORDERED: ACETAMINOPHEN INJECTION 100 ML IVPB ONE (21:06)
[2022-09-13 21:38] LABS: BASO % 0.6 % (0-2.0); HEMATOCRIT 43.1 % (35.4-49); HEMOGLOBIN 14.8 GM/dL (11.7-16.9); LYMPH % 12.5 % (8-40); MCH 29.7 pg (25.7-33.7); MCHC 34.3 g/dl (32.0-35.9); MEAN CELL VOLUME 86.7 fl (80-96); MEAN PLT VOLUME 8.8 fl (7.5-11.1); MONO % 9.7 % (3.8-10.2); NEUT % 76.2 % (42.8-82.8); PLATELET COUNT 239 10^3/uL (134-434); RBC 4.97 M/mm3 (4.00-5.60); RDW 13.6 % (11.9-15.9); WHITE BLOOD COUNT 9.9 K/mm3 (4.0-10.0)
[2022-09-13 21:53] LABS: INR 1.16 (0.83-1.09); PROTHROMBIN TIME (PATIENT) 13.4 SEC (9.7-13.0)
[2022-09-13 21:55] LABS: ACTIVATED PTT 33.8 SECONDS (25.2-36.5)
[2022-09-13 22:05] LABS: POTASSIUM 3.7 mmol/L (3.5-5.1)
[2022-09-13 22:08] LABS: ALBUMIN 3.4 g/dl (3.4-5.0)
[2022-09-13 22:12] LABS: CREATININE 1.7 mg/dL (0.55-1.3)
[2022-09-13 22:13] LABS: BILIRUBIN,TOTAL 0.3 mg/dL (0.2-1); TOT PROT 7.1 g/dl (6.4-8.2)
[2022-09-14 02:46] VITALS: BMI 27.6
[2022-09-14 08:02] LABS: BASO % 0.6 % (0-2.0); EOS % 1.8 % (0-4.5); HEMATOCRIT 40.7 % (35.4-49); HEMOGLOBIN 14.1 GM/dL (11.7-16.9); LYMPH % 14.3 % (8-40); MCH 29.6 pg (25.7-33.7); MCHC 34.6 g/dl (32.0-35.9); MEAN CELL VOLUME 85.5 fl (80-96); MEAN PLT VOLUME 8.7 fl (7.5-11.1); MONO % 10.5 % (3.8-10.2); NEUT % 72.8 % (42.8-82.8); PLATELET COUNT 219 10^3/uL (134-434); RBC 4.77 M/mm3 (4.00-5.60); RDW 13.6 % (11.9-15.9); WHITE BLOOD COUNT 7.6 K/mm3 (4.0-10.0)
[2022-09-14 08:35] LABS: POTASSIUM 3.5 mmol/L (3.5-5.1)
[2022-09-14 08:41] LABS: CALCIUM 8.8 mg/dL (8.5-10.1)
[2022-09-14 08:42] LABS: BLOOD UREA NITROGEN 18.9 mg/dL (7-18); MAGNESIUM 1.8 mg/dL (1.8-2.4)
[2022-09-14 08:45] LABS: CREATININE 1.5 mg/dL (0.55-1.3); PHOSPHOROUS 3.4 mg/dL (2.5-4.9)
[2022-09-14 09:23] VITALS: BP 138/86; PULSE 79; RESP 17; TEMP 98.7
[2022-09-14] MEDS ORDERED: HYDROCHLOROTHIAZIDE 25 MG TABLET (FP) PO SCH (10:00)
[2022-09-14] MEDS ORDERED: amLODIPine BESYLATE 10 MG TABLET (FP) PO SCH (10:00)
[2022-09-14] MEDS ORDERED: ATORVASTATIN CA 20 MG TABLET (FP) PO SCH (22:00)
== END 2022-09-14 14:35 | disposition home or self-care (01) ==
LOC: JER 18:12 → JERBED 23:14 → J4W 09-14 02:13
PROVIDERS: ADMIT Internal Medicine; ATTEND Internal Medicine
PROC: 3E033NZ Introduction of Analgesics, Hypnotics, Sedatives into Peripheral Vein, Percutaneous Approach (ICD-10-PCS; principal; 2022-09-13)
DX: W18.39XA Other fall on same level, initial encounter (principal); Y93.89 Activity, other specified; Y92.008 Other place in unspecified non-institutional (private) residence as the place of occurrence of the external cause; I42.8 Other cardiomyopathies; N18.9 Chronic kidney disease, unspecified; R29.6 Repeated falls; E78.5 Hyperlipidemia, unspecified; I12.9 Hypertensive chronic kidney disease with stage 1 through stage 4 chronic kidney disease, or unspecified chronic kidney disease; E11.9 Type 2 diabetes mellitus without complications; F79 Unspecified intellectual disabilities
CPT/HCPCS: 36415; 70450-TC; 71045-TC-FY; 72125-TC; 72170-TC-FY; 73590-TC-LT-FY; 73610-TC-LT-FY; 73630-TC-LT; 80048; 80053; 82962; 83036; 83735; 84100; 84484; 85025; 85610; 85730; 93005; 93010; 96374; 97116-GP; 97161-GP; 99285-25; G0378

== ENCOUNTER 2024-02-13 09:13 | Observation (INO) | payer OTHER ==
[2024-02-13 09:42] VITALS: RESP 18
[2024-02-13 10:30] LABS: HEMATOCRIT 43.9 % (35.4-49); HEMOGLOBIN 14.7 GM/dL (11.7-16.9); MCH 29.4 pg (25.7-33.7); MCHC 33.5 g/dl (32.0-35.9); MEAN CELL VOLUME 87.6 fl (80-96); MEAN PLT VOLUME 9.4 fl (7.5-11.1); PLATELET COUNT 199 10^3/uL (134-434); RBC 5.02 M/mm3 (4.00-5.60); RDW 13.7 % (11.9-15.9); WHITE BLOOD COUNT 8.5 K/mm3 (4.0-10.0)
[2024-02-13] MEDS ORDERED: ONDANSETRON 4 MG/2 ML VIAL ONE (10:33)
[2024-02-13] MEDS ORDERED: ACETAMINOPHEN INJECTION 100 ML ONE (10:33)
[2024-02-13 10:41] LABS: POTASSIUM 3.7 mmol/L (3.5-5.1)
[2024-02-13 10:45] LABS: ALBUMIN 3.4 g/dl (3.4-5.0); CALCIUM 9.3 mg/dL (8.5-10.1)
[2024-02-13 10:46] LABS: BLOOD UREA NITROGEN 21.4 mg/dL (7-18)
[2024-02-13 10:49] LABS: CREATININE 1.9 mg/dL (0.55-1.3)
[2024-02-13 10:50] LABS: TOT PROT 7.1 g/dl (6.4-8.2)
[2024-02-13 11:07] LABS: EPI CELLS 14 /uL (0-25.1); HYALINE CASTS 0 /uL (0-3.1); PH,URINE 7.5 (5.0-8.0); URINE APPEARANCE CLEAR; URINE BACTERIA 6 /uL (0-1359); URINE BILIRUBIN NEGATIVE (NEGATIVE); URINE COLOR YELLOW; URINE GLUCOSE (UA) NEGATIVE (NEGATIVE); URINE KETONE NEGATIVE (NEGATIVE); URINE LEUK ESTERASE NEGATIVE (NEGATIVE); URINE NITRITE NEGATIVE (NEGATIVE); URINE PROTEIN 2+ (NEGATIVE); URINE RBC 16 /uL (0-23.9); URINE WBC 8 /uL (0-25.8)
[2024-02-13] MEDS: ONDANSETRON 4 MG/2 ML VIAL IVPUSH ONE (11:07)
[2024-02-13] MEDS: ACETAMINOPHEN 1000 MG/100 ML BAG IVPB ONE (11:07)
[2024-02-13 11:09] LABS: ANISOCYTOSIS 0; HELMET CELLS 0; HOWELL-JOLLY BODIES 0; MACROCYTOSIS 0; OVALOCYTE 0; ROULEAU 0; SICKELED CELLS 0; TARGET CELLS 0; TEAR DROP CELLS 0; TOXIC GRANULATION 0
[2024-02-13] MEDS ORDERED: hydrALAZINE HCL 20 MG/ML VIAL ONE (11:34)
[2024-02-13] MEDS: hydrALAZINE HCL 20 MG/ML VIAL IVPUSH ONE (11:44)
[2024-02-13] MEDS: SODIUM CHLORIDE 500 ML IV STA (13:32)
[2024-02-13] MEDS ORDERED: ONDANSETRON 4 MG/2 ML VIAL IVPUSH PRN (14:26)
[2024-02-13] MEDS ORDERED: ACETAMINOPHEN 325 MG TABLET (FP) PO PRN (14:26)
[2024-02-13] MEDS ORDERED: guaiFENesin/D-METHORPHAN HB 10 ML UNIT-DOSE CUPS PO PRN (14:48)
[2024-02-13 17:24] VITALS: BMI 43.4
[2024-02-13] MEDS: hydrALAZINE HCL 50 MG TABLET (FP) PO SCH (22:39)
[2024-02-13] MEDS: ATORVASTATIN CA 40 MG TABLET (FP) PO SCH (22:39)
[2024-02-13] MEDS: HEPARIN NA (PORCINE) 5,000 UNITS/ML 1ML VIAL SQ SCH (22:39)
[2024-02-14 08:56] LABS: BASO % 0.4 % (0-2.0); EOS % 1.7 % (0-4.5); HEMATOCRIT 40.3 % (35.4-49); HEMOGLOBIN 13.5 GM/dL (11.7-16.9); LYMPH % 10.8 % (8-40); MCH 29.4 pg (25.7-33.7); MCHC 33.5 g/dl (32.0-35.9); MEAN CELL VOLUME 87.9 fl (80-96); MEAN PLT VOLUME 9.4 fl (7.5-11.1); MONO % 9.9 % (3.8-10.2); NEUT % 77.2 % (42.8-82.8); PLATELET COUNT 172 10^3/uL (134-434); RBC 4.58 M/mm3 (4.00-5.60); RDW 13.6 % (11.9-15.9); WHITE BLOOD COUNT 5.8 K/mm3 (4.0-10.0)
[2024-02-14] MEDS: amLODIPine BESYLATE 10 MG TABLET (FP) PO SCH (09:02)
[2024-02-14 09:19] LABS: POTASSIUM 3.6 mmol/L (3.5-5.1)
[2024-02-14 09:25] LABS: CALCIUM 8.6 mg/dL (8.5-10.1)
[2024-02-14 09:26] LABS: BLOOD UREA NITROGEN 23.5 mg/dL (7-18); MAGNESIUM 1.8 mg/dL (1.8-2.4)
[2024-02-14 09:29] LABS: CREATININE 1.9 mg/dL (0.55-1.3)
[2024-02-14 09:31] LABS: TOT PROT 6.2 g/dl (6.4-8.2)
[2024-02-15 10:47] LABS: BASO % 0.4 % (0-2.0); EOS % 2.7 % (0-4.5); HEMATOCRIT 41.8 % (35.4-49); LYMPH % 12.4 % (8-40); MCH 29.7 pg (25.7-33.7); MCHC 33.5 g/dl (32.0-35.9); MEAN CELL VOLUME 88.6 fl (80-96); MEAN PLT VOLUME 9.6 fl (7.5-11.1); MONO % 8.2 % (3.8-10.2); NEUT % 76.3 % (42.8-82.8); PLATELET COUNT 170 10^3/uL (134-434); RBC 4.72 M/mm3 (4.00-5.60); RDW 13.8 % (11.9-15.9); WHITE BLOOD COUNT 5.3 K/mm3 (4.0-10.0)
[2024-02-15 11:18] LABS: ALBUMIN 3.2 g/dl (3.4-5.0); CALCIUM 8.7 mg/dL (8.5-10.1)
[2024-02-15 11:19] LABS: BLOOD UREA NITROGEN 20.9 mg/dL (7-18)
[2024-02-15 11:21] LABS: CREATININE 1.7 mg/dL (0.55-1.3)
[2024-02-15 11:23] LABS: BILIRUBIN,TOTAL 0.5 mg/dL (0.2-1); TOT PROT 6.6 g/dl (6.4-8.2)
[2024-02-15 11:27] VITALS: BP 118/74; PULSE 82; TEMP 98.6
== END 2024-02-15 15:13 | disposition home or self-care (01) ==
LOC: JER 09:13 → JERBED 13:46 → J7W 15:56
PROVIDERS: ADMIT Internal Medicine
PROC: 3E033NZ Introduction of Analgesics, Hypnotics, Sedatives into Peripheral Vein, Percutaneous Approach (ICD-10-PCS; principal; 2024-02-13)
PROC: 3E0337Z Introduction of Electrolytic and Water Balance Substance into Peripheral Vein, Percutaneous Approach (ICD-10-PCS; 2024-02-13)
PROC: 3E033GC Introduction of Other Therapeutic Substance into Peripheral Vein, Percutaneous Approach (ICD-10-PCS; 2024-02-13)
DX: E11.22 Type 2 diabetes mellitus with diabetic chronic kidney disease (principal); I13.0 Hypertensive heart and chronic kidney disease with heart failure and stage 1 through stage 4 chronic kidney disease, or unspecified chronic kidney disease; N18.9 Chronic kidney disease, unspecified; I50.22 Chronic systolic (congestive) heart failure; N17.9 Acute kidney failure, unspecified; A08.4 Viral intestinal infection, unspecified; R80.9 Proteinuria, unspecified; R53.1 Weakness; R05.9 Cough, unspecified; R50.9 Fever, unspecified; I42.9 Cardiomyopathy, unspecified; F70 Mild intellectual disabilities
CPT/HCPCS: 0241U-QW; 36415; 71045-TC-FY; 71250-TC; 74176-TC; 76775-TC; 80053; 81003; 83036; 83605; 83690; 83735; 83880; 84100; 84484; 85025; 87040; 87086; 93005; 93010; 96361; 96374; 96375; 97116-GP; 97161-GP; 99285-25; G0378; J0131; J1644

== ENCOUNTER 2024-03-19 17:57 | Emergency (ER) | payer OTHER ==
[2024-03-19 18:18] VITALS: BMI 31.6
[2024-03-19 19:46] LABS: BASO % 0.4 % (0-2.0); EOS % 1.5 % (0-4.5); HEMATOCRIT 41.1 % (35.4-49); HEMOGLOBIN 13.7 GM/dL (11.7-16.9); MCH 29.1 pg (25.7-33.7); MCHC 33.3 g/dl (32.0-35.9); MEAN CELL VOLUME 87.3 fl (80-96); MEAN PLT VOLUME 8.7 fl (7.5-11.1); MONO % 7.5 % (3.8-10.2); NEUT % 83.6 % (42.8-82.8); PLATELET COUNT 189 10^3/uL (134-434); RBC 4.71 M/mm3 (4.00-5.60); RDW 14.2 % (11.9-15.9); WHITE BLOOD COUNT 9.1 K/mm3 (4.0-10.0)
[2024-03-19 19:54] LABS: INR 1.14 (0.83-1.09); PROTHROMBIN TIME (PATIENT) 12.4 SEC (9.7-13.0)
[2024-03-19 19:57] LABS: ACTIVATED PTT 31.9 SECONDS (25.2-36.5)
[2024-03-19 20:00] LABS: VENOUS BASE EXCESS -2.4 mmol/L (-2-2); VENOUS O2 SATURATION 74.7 % (70-80); VENOUS PCO2 43.5 mmHg (38-52); VENOUS PH 7.347 (7.310-7.410)
[2024-03-19 20:09] LABS: POTASSIUM 4.1 mmol/L (3.5-5.1)
[2024-03-19 20:11] LABS: CALCIUM 8.7 mg/dL (8.5-10.1)
[2024-03-19 20:12] LABS: ALBUMIN 3.4 g/dl (3.4-5.0); MAGNESIUM 1.7 mg/dL (1.8-2.4)
[2024-03-19 20:15] LABS: CREATININE 1.4 mg/dL (0.55-1.3)
[2024-03-19 20:16] LABS: BILIRUBIN,TOTAL 0.5 mg/dL (0.2-1)
[2024-03-19 20:17] LABS: TOT PROT 6.9 g/dl (6.4-8.2)
[2024-03-19 20:20] LABS: N-TERMINAL BNP 102.4 pg/ml (5-125)
[2024-03-19 20:39] LABS: PH,URINE 5.5 (5.0-8.0); URINE APPEARANCE CLEAR; URINE BILIRUBIN NEGATIVE (NEGATIVE); URINE COLOR YELLOW; URINE GLUCOSE (UA) NEGATIVE (NEGATIVE); URINE KETONE NEGATIVE (NEGATIVE); URINE LEUK ESTERASE NEGATIVE (NEGATIVE); URINE NITRITE NEGATIVE (NEGATIVE); URINE PROTEIN NEGATIVE (NEGATIVE)
[2024-03-19] MEDS ORDERED: FUROSEMIDE 40 MG/4 ML INJECTABLE VIAL ONE (22:11)
[2024-03-19] MEDS: FUROSEMIDE 40 MG/4 ML INJECTABLE VIAL IVPUSH ONE (22:19)
[2024-03-19 22:20] VITALS: BP 142/80; PULSE 82; RESP 18; TEMP 98.4
== END 2024-03-19 23:01 | disposition home or self-care (01) ==
LOC: JER 17:57
PROC: 3E033GC Introduction of Other Therapeutic Substance into Peripheral Vein, Percutaneous Approach (ICD-10-PCS; principal; 2024-03-19)
DX: I11.0 Hypertensive heart disease with heart failure (principal); I50.9 Heart failure, unspecified; M79.89 Other specified soft tissue disorders; R05.9 Cough, unspecified; M25.562 Pain in left knee; R06.02 Shortness of breath; R53.1 Weakness; Z20.822 Contact with and (suspected) exposure to COVID-19
CPT/HCPCS: 0241U-QW; 36415; 71045-TC-FY; 73564-TC-LT-FY; 80053; 81003; 82803; 83735; 83880; 84484; 85025; 85610; 85730; 87086; 93005; 93010; 99285-25

== ENCOUNTER 2024-10-19 21:51 | Inpatient (IN) | payer OTHER ==
[2024-10-19 22:48] LABS: ABSOLUTE IMMATURE GRANULOCYTES 0.03 x10^3/uL (0.0-0.031); BASOPHILS # 0.03 x10^3/uL (0.01-0.08); EOSINOPHIL % 1.3 % (0.8-7.0); EOSINOPHILS # 0.14 x10^3/uL (0.04-0.54); MCHC 33.1 g/dl (32.3-36.5); MEAN CELL VOLUME 89.6 fl (79.0-92.2); MEAN PLT VOLUME 10.8 fl (9.4-12.4); MONOCYTE # 0.82 x10^3/uL (0.30-0.82); MONOCYTE % 7.8 % (5.3-12.2); RDW 13.6 % (12.2-16.6)
[2024-10-19 23:09] LABS: GLUCOSE,RANDOM 103.0 mg/dL (74-106)
[2024-10-19 23:10] LABS: TOT PROT 6.6 g/dl (6.4-8.2)
[2024-10-19 23:11] LABS: CO2 22.0 mmol/L (21-32)
[2024-10-19 23:12] LABS: ALK PHOS 82.0 U/L (40-150)
[2024-10-19 23:15] LABS: CREATININE 1.51 mg/dL (0.55-1.3); SGOT/AST 25.0 U/L (5-34); SGPT/ALT 8.0 U/L (0-55)
[2024-10-19 23:48] LABS: N-TERMINAL BNP 124.7 pg/mL (0-299.9)
[2024-10-19] MEDS ORDERED: FUROSEMIDE 40 MG/4 ML INJECTABLE VIAL ONE (23:53)
[2024-10-19 23:58] LABS: HCV DIAGNOSTIC IN-HOUSE W/RFLX NON-REACTIVE (NONREACTIVE); HIV INTERPRETATION NEGATIVE (NEGATIVE)
[2024-10-20] MEDS: FUROSEMIDE 40 MG/4 ML INJECTABLE VIAL IVPUSH ONE ×2 (00:01→06:12)
[2024-10-20 03:42] VITALS: BMI 36.8
[2024-10-20] MEDS: hydrALAZINE HCL 50 MG TABLET (FP) PO SCH ×2 (06:11→21:39)
[2024-10-20] MEDS: ACETAMINOPHEN 500 MG TABLET (FP) PO PRN (06:12)
[2024-10-20] MEDS: INSULIN ASPART SLIDING SCALE (NOVOLOG) 1 VIAL SQ SCH ×2 (06:27→16:42)
[2024-10-20 06:41] LABS: ABSOLUTE IMMATURE GRANULOCYTES 0.05 x10^3/uL (0.0-0.031); BASOPHILS # 0.05 x10^3/uL (0.01-0.08); EOSINOPHIL % 1.3 % (0.8-7.0); EOSINOPHILS # 0.12 x10^3/uL (0.04-0.54); MCHC 32.5 g/dl (32.3-36.5); MEAN CELL VOLUME 89.8 fl (79.0-92.2); MEAN PLT VOLUME 11.0 fl (9.4-12.4); MONOCYTE # 0.86 x10^3/uL (0.30-0.82); MONOCYTE % 9.5 % (5.3-12.2); RDW 13.5 % (12.2-16.6)
[2024-10-20 06:52] LABS: GLUCOSE,RANDOM 104.0 mg/dL (74-106)
[2024-10-20 06:54] LABS: CO2 26.0 mmol/L (21-32)
[2024-10-20 06:59] LABS: CREATININE 1.45 mg/dL (0.55-1.3)
[2024-10-20] MEDS: MAGNESIUM OXIDE 400 MG TABLET (FP) PO ONE (18:09)
[2024-10-20] MEDS: ATORVASTATIN CA 40 MG TABLET (FP) PO SCH (21:33)
[2024-10-21 06:42] LABS: ABSOLUTE IMMATURE GRANULOCYTES 0.03 x10^3/uL (0.0-0.031); BASOPHILS # 0.03 x10^3/uL (0.01-0.08); EOSINOPHIL % 1.8 % (0.8-7.0); EOSINOPHILS # 0.14 x10^3/uL (0.04-0.54); MCHC 32.0 g/dl (32.3-36.5); MEAN CELL VOLUME 90.6 fl (79.0-92.2); MEAN PLT VOLUME 10.7 fl (9.4-12.4); MONOCYTE # 0.61 x10^3/uL (0.30-0.82); MONOCYTE % 7.6 % (5.3-12.2); RDW 13.6 % (12.2-16.6)
[2024-10-21 07:09] LABS: GLUCOSE,RANDOM 107 mg/dL (74-106); TOT PROT 6.1 g/dl (6.4-8.2)
[2024-10-21 07:10] LABS: CO2 25 mmol/L (21-32)
[2024-10-21 07:11] LABS: ALK PHOS 79 U/L (40-150)
[2024-10-21 07:14] LABS: SGOT/AST 15 U/L (5-34)
[2024-10-21 07:15] LABS: CREATININE 1.36 mg/dL (0.55-1.3)
[2024-10-21 07:24] LABS: SGPT/ALT < 6 U/L (0-55)
[2024-10-21] MEDS ORDERED: INSULIN ASPART SLIDING SCALE (NOVOLOG) 1 VIAL SQ ONE (10:27)
[2024-10-21] MEDS: FUROSEMIDE 40 MG/4 ML INJECTABLE VIAL IVPUSH SCH (14:49)
[2024-10-23] MEDS: EMPAGLIFLOZIN (JARDIANCE) 10 MG TABLET PO SCH (12:06)
[2024-10-23] MEDS: amLODIPine BESYLATE 2.5 MG TABLET (FP) PO SCH (12:06)
[2024-10-23 12:18] LABS: ABSOLUTE IMMATURE GRANULOCYTES 0.04 x10^3/uL (0.0-0.031); BASOPHILS # 0.03 x10^3/uL (0.01-0.08); EOSINOPHIL % 1.2 % (0.8-7.0); EOSINOPHILS # 0.12 x10^3/uL (0.04-0.54); MCHC 32.1 g/dl (32.3-36.5); MEAN CELL VOLUME 90.5 fl (79.0-92.2); MEAN PLT VOLUME 11.1 fl (9.4-12.4); MONOCYTE # 0.77 x10^3/uL (0.30-0.82); MONOCYTE % 7.9 % (5.3-12.2); RDW 13.2 % (12.2-16.6)
[2024-10-23 12:46] LABS: GLUCOSE,RANDOM 111.0 mg/dL (74-106)
[2024-10-23 12:48] LABS: CO2 27.0 mmol/L (21-32)
[2024-10-23 12:52] LABS: CREATININE 1.28 mg/dL (0.55-1.3); LDL CHOLESTEROL (ONLY SJRH) 43.0 mg/dL (5-100)
[2024-10-23] MEDS: KETOROLAC TROMETHAMINE 15 MG/ML VIAL IVPUSH ONE (23:15)
[2024-10-24 10:16] VITALS: BP 153/86; PULSE 75; RESP 18; TEMP 97.7
== END 2024-10-24 17:15 | disposition home health service (06) | DRG 291 ==
LOC: JER 21:51 → JERBED 23:28 → J2W 10-20 03:19 → OBSVTOIN 10-22 20:44
PROVIDERS: ADMIT Internal Medicine; ATTEND Internal Medicine
DX: I13.0 Hypertensive heart and chronic kidney disease with heart failure and stage 1 through stage 4 chronic kidney disease, or unspecified chronic kidney disease (principal); I50.33 Acute on chronic diastolic (congestive) heart failure; E78.5 Hyperlipidemia, unspecified; I42.8 Other cardiomyopathies; E11.22 Type 2 diabetes mellitus with diabetic chronic kidney disease; F70 Mild intellectual disabilities; E83.42 Hypomagnesemia; N18.30 Chronic kidney disease, stage 3 unspecified
CPT/HCPCS: 36415; 71045-TC-FY; 74018-TC-FY; 80048; 80053; 80061; 82962; 83036; 83735; 83880; 84100; 84443; 84484; 85025; 86803; 87389; 93005; 93010; 93306-TC; 93970-TC; 97116-GP; 97161-GP; 99285-25; G0378